=== PATIENT | male | born 1955 | race Caucasian/White ===

== ENCOUNTER 2016-10-16 10:20 | Inpatient (IN) | payer OTHER, MEDICARE ==
[~2016-10-16] VITALS: Ht 182.9 cm; Wt 130.2 kg
[~2016-10-16 10:20] MED LIST: ALBUTEROL0.09 MG/A1 INH; COUMADIN5 M2 PO; CYMBALTA60 M1 PO; DOCUSATE SODIU100 MG PO; FENOFIBRATE48 MG PO; FOSINOPRIL SODI20 M1 PO; FUROSEMIDE40 M1 PO; GABAPENTIN400 M2 PO; LOVASTATIN20 M1 PO; LOVENOX 4040 MG/0.4 SC; MIRALAX17 GM PO; OMEGA-3 300 MG-1 SGL PO; OXACILLIN IV; OXYCODONE HYDRO30 MG PO; SENOKOT8.6 MG PO; SPIRIVA18 MCG INH; TRICOR 48MG48 MG PO
--- NOTE | 2016-10-16 10:23 | ED DYSPNEA/ASTHMA COMPLAINT ---
History of Present Illness General Chief Complaint: Dyspnea (COPD, CHF, Other) Stated Complaint: BIBA SOB Source: patient, family, EMS Exam Limitations: no limitations Vital Signs & Intake/Output Vital Signs & Intake/Output Vital Signs Date Time Temp Pulse Resp B/P B/P Pulse O2 O2 Flow FiO2 Mean Ox Delivery Rate 10/17 1935 93 Nasal 4.5L Cannula 10/17 1415 97.4 80 22 126/86 95 Nasal 5.0L Cannula 10/17 0803 92 Nasal 5.0L Cannula 10/17 0800 Nasal 4.5L Cannula 10/17 0657 97.9 82 22 132/90 92 Nasal 5.0L Cannula 10/17 0000 92 Nasal 4.5L Cannula ED Intake and Output 10/17 0000 10/16 1200 Intake Total 750 Output Total 300 Balance 450 Intake, IV 350 Intake, Oral 400 Output, Urine 300 Patient 287 lb 287 lb Weight Weight Reported by Patient Measurement Method SEE TRIAGE (CHEY ALBARRAN,JADEN) Allergies Coded Allergies: NO KNOWN ALLERGIES (03/12/13) Reconcile Medications Albuterol Sulfate (Proair Hfa) 90 MCG HFA.AER.AD 2 PUF INH Q4-6 PRN PRN SHORTNESS OF BREATH (Reported) Aspirin (Aspirin*) 81 MG TAB.CHEW 1 TAB PO DAILY HEART HEALTH (Reported) Atorvastatin Calcium 80 MG TABLET 1 TAB PO DAILY CHOLESTEROL (Reported) Cholecalciferol (Vitamin D3) (Vitamin D) 1,000 UNIT TABLET 1 TAB PO DAILY VITAMIN SUPPORT (Reported) Duloxetine HCl (Cymbalta) 60 MG CAPSULE.DR 1 CAP PO QPM DEPRESSION (Reported) Fenofibrate Nanocrystallized (Fenofibrate) 48 MG TABLET 1 TAB PO DAILY CHOLESTEROL (Reported) Ferrous Sulfate 325 MG (65 MG IRON) TABLET 1 TAB PO DAILY SUPPLEMENT ( Reported) Fosinopril Sodium 20 MG TABLET 1 TAB PO DAILY HTN (Reported) Furosemide 40 MG TABLET 1 TAB PO DAILY WATER RETENTION (Reported) Gabapentin 400 MG CAPSULE 1 CAP PO BID PAIN (Reported) Lovastatin 20 MG TABLET 3 TAB PO DAILY CHOLESTEROL (Reported) Mupirocin Calcium (Mupirocin) 2 % CREAM..G. 1 SHANIA TOP DAILY PRN UNKNOWN ( Reported) [place]-3 Fatty Acids/Fish Oil (Fish Oil 1,000 MG Capsule) 340 MG-1,000 MG CAPSULE 1 CAP PO BID SUPPLEMENT (Reported) Oxycodone HCl 30 MG TABLET 1 TAB PO Q4-6 PRN PRN PAIN (Reported) Tiotropium [place] (Spiriva) 18 MCG CAP.W.DEV 1 CAP INH DAILY BREATHING PROBLEMS (Reported) Warfarin Sodium (Coumadin) 5 MG TABLET 1 TAB PO 1700 BLOOD THINNER (Reported) Triage Nurses Notes Reviewed? yes Onset: Gradual Duration: day(s): (5) Timing: recent history Severity: moderate, severe Activities at Onset: rest Associated Symptoms: SLEEPINESS, CYANOSIS, COUGH HPI: 61 year old male with history of COPD on home o2 5L, non compliant with CPAP for over one year who presents with 5 day history of cough, sob, increased sleepiness. The patient he has been symptomatic for a few days but didn't want come to the hospital. Today his mother finally told him to call the ambulance. He arrives here with his fiance. He is awake and alert and oriented 3. Patient is sleepy and slow to respond. He states he's been having episodes of chest pain was central and left-sided over the past few days but no chest pain at this time. Denies any fever or chills. He states he's been using his inhaler at home without relief. Patient also has a chronic lower extremity wounds and has his legs. Last time the visiting nurse came was on Friday. He follows up at the wound care center here with Dr. French. 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 History of PE on Coumadin. Last INR was just over 2. Denies any episodes of bleeding. History of previous transfusion 2 years ago secondary to bleeding from lower extremity ulceration. Since ruben states that over the past 5 days he has looked very purple at home. She received a DuoNeb on route. He was found to be satting in the 80s at home with 5 L. On route his saturation improved. Currently he is saturating 80% on 5 L. Past History Travel History Traveled to [place] past 21 day No Medical History Any Pertinent Medical History? see below for history Cardiovascular: CAD Respiratory: COPD, pulmonary embolism, pneumonia Psychiatric: depression Blood Disorders: coagulopathy History of MRSA: No History of VRE: No History of CDIFF: No Pneumonia Vaccine: 03/08/10 Influenza Vaccine: 01/26/14 Surgical History Surgical History: non-contributory Psychosocial History Who do you live with Mother Services at Home Nursing What is your primary language Palestinian Tobacco Use: Quit >30 days ago ETOH Use: PREVIOUS ALCOHOLIC Family History Family History, If Any: MOTHER (HTN, DM, COPD). FATHER (Cancer). Relation not specified for: FH: COPD (chronic obstructive pulmonary disease) Hx Contributory? No Review of Systems Review of Systems Constitutional: Denies: chills, fever. EENTM: Denies: blurred vision. Respiratory: Reports: cough, short of breath. Denies: sputum production. Cardiovascular: Reports: chest pain. GI: Denies: abdominal pain, nausea, vomiting. Genitourinary: Denies: discharge, dysuria. Musculoskeletal: Denies: back pain. Neurological/Psychological: Reports: see HPI (LETHARGY, SLEEPINESS). Hematologic/Endocrine: Denies: bruising, bleeding. Immunologic/Allergic: Denies: splenectomy. Physical Exam Physical Exam General Appearance: well developed/nourished, alert, awake, lethargic, mild distress, moderate distress, obese Head: atraumatic, normal appearance Eyes: Bilateral: PERRL, other (PUPILS 4 MM). Ears, Nose, Throat: normal pharynx, normal ENT inspection, hearing grossly normal Neck: normal inspection, supple, full range of motion Respiratory: accessory muscle use, wheezing Cardiovascular: regular rate/rhythm Peripheral Pulses: 2+ radial (R), 2+ radial (L) Gastrointestinal: soft, non-tender, OBESE Extremities: swelling (3+ BILATERAL), LEGS WRAPPED Neurologic/Psych: no motor/sensory deficits, awake, oriented x 3, LETHARGIC Skin: cyanosis Core Measures ACS in differential dx? Yes ASA ordered for poss ACS? No-ACS ruled out Severe Sepsis Present: No Septic Shock Present: No Progress Differential Diagnosis: CHF, COPD, pulmonary embolism, pneumonia, HYPERCARBIA Plan of Care: Orders Procedure Date/time Status PROTHROMBIN TIME 10/18 599 Active CBC WITHOUT DIFFERENTIAL 10/18 599 Active BASIC ELECTROLYTES PLUS BUN&CR 10/18 599 Active Change service to 10/17 0925 Active OXYGEN SETUP [facility] 10/16 UNK Complete INCENTIVE SPIROMETRY TRX [facility] 10/16 UNK Complete AEROSOL [facility] 10/16 UNK Complete OXYGEN 10/16 UNK Complete OXYGEN TRANSPORT 10/16 UNK Complete CONTIN. POS. AIRWAY PRESS. [facility] 10/16 UNK Complete FingerStick- Glucose 10/16 UNK Active Current Medications Sig/Bernice Start time Last Medication Dose Stop Time Status Admin Prednisone 10 MG 10/23 AC 10/24 2000 Prednisone 20 MG 10/21 AC 10/22 2000 Prednisone 30 MG 10/19 AC 10/20 2000 Moxifloxacin HCl 400 MG DAILY 10/18 1000 AC (Avelox) Prednisone 40 MG TAPER 10/18 1999 CAN 10/25 1959 Prednisone 40 MG 10/17 AC 10/17 211 Oxycodone HCl 5 MG Q6 PRN 10/17 1500 AC (Roxicodone) Potassium Chloride 40 MEQ DAILY 10/17 1453 AC 10/17 (Klor) 1552 Aspirin 81 MG DAILY 10/17 1000 AC 10/17 (Aspirin) 1102 Fenofibrate 48 MG DAILY 10/17 1000 AC 10/17 (Tricor) 1102 Ferrous Sulfate 325 MG DAILY 10/17 1000 AC 10/17 (Feosol) 1102 Furosemide 40 MG DAILY 10/17 1000 AC 10/17 (Lasix) 1102 Lisinopril 20 MG DAILY 10/17 1000 AC 10/17 (Prinivil) 1102 Vancomycin HCl 1,000 MG ONCE ONE 10/16 2245 CAN Sodium Chloride 250 ML 10/16 2344 (Normal Saline 0.9%) Albuterol Sulfate 3 ML TID 10/16 2200 AC 10/17 (Proventil) 193 Duloxetine HCl 60 MG QPM 10/16 2200 AC 10/17 (Cymbalta) 211 Atorvastatin Calcium 80 MG 1700 10/16 1700 AC 10/17 (Lipitor) 1551 Acetaminophen 650 MG Q6P PRN 10/16 1300 AC (Tylenol) Tiotropium [place] 1 PUF DAILY 10/16 1258 AC 10/17 (Spiriva) 1103 Laboratory Tests 10/17/16 0630: Anion Gap 10, Estimated GFR > 60, BUN/Creatinine Ratio 23.8, PT 37.4 H, INR 3.61 H, CBC w Diff MAN DIFF ORDERED, RBC 3.77 L, MCV 92.2, MCH 30.0, RDW 14.1, MPV 7.1 L, Gran % 92.7 H, Lymphocytes % 3.4 L, Monocytes % 3.9, Eosinophils % 0, Basophils % 0 L, Absolute Granulocytes 13.6 H, Absolute Lymphocytes 0.5 L, Absolute Monocytes 0.6, Absolute Eosinophils 0, Absolute Basophils 0, Platelet Estimate VERIFIED BY SMEAR, Polychromasia 1+, Basophilic Stippling 1+, PUBS MCHC 32.5 L [facility] PCP = EMELIA [facility] 11:34 AM PATIENT REFUSING BIPAP AFTER BEING ON FOR A FEW MINUTES. ABX, STEROIDS GIVEN. (CHEY ALBARRAN,JADEN) Diagnostic Imaging: Viewed by Me: Radiology Read. Discussed w/RAD: Radiology Read. Initial ED EKG: SINUS TACHYCARDIA AT 107 BPM Rhythm Strip: sinus tachycardia Comments: PATIENT: STEVE DENNIS PRESENT AGE: 61 PATIENT ACCOUNT NO: [id number] : 59 LOCATION: [facility] ORDERING PHYSICIAN: JADEN GUERRIER MD SERVICE DATE: 10/16/16 EXAM TYPE: RAD - XRY-PORTABLE CHEST XRAY EXAMINATION: XR PORTABLE CHEST CLINICAL INFORMATION: Hypoxia. Shortness of breath. History of chronic obstructive pulmonary disease. COMPARISON: CXR from 02/21/2014 and 02/25/2014 TECHNIQUE: Portable frontal view of the chest was obtained. FINDINGS: The upper lobes are hyperlucent from chronic emphysematous disease. The left hilum is chronically elevated and linear opacities of scarring extent from the hilum to the chronically thickened apical pleura, there is likely traction bronchiectasis in the left upper lobe. The lobulated configuration of the left hilum is similar in appearance compared to 02/21/2014. The evaluation of the lungs is suboptimal due to prominent soft tissues of the chest wall. There may be some new, hazy and interstitial opacity in the right mid and lower lung zones. There is new consolidation and/or patchy nodular opacity in the left lower lung. No pleural effusion or pneumothorax. Cardiac silhouette is at the upper range of normal size. IMPRESSION: 1. Pulmonary emphysema. 2. Chronic scarring and traction bronchiectasis of the left upper lobe. The left hilum is elevated and has lobulated contour, but this is not appreciably changed compared to 02/21/2014. 3. New patchy consolidation and/or nodular opacity in the left lower lung is nonspecific and could be caused by pneumonia and/or neoplastic disease. Radiographic follow-up is required (and chest CT follow-up may ultimately be needed). There are likely new interstitial, hazy opacities in the right mid and lower lung, suspicious for pneumonia. DICTATED BY: SHIRA HURST MD DATE/TIME DICTATED:10/16/161138 IMPROVEMENT NURSE:CHANDA DATE/TIME TRANSCRIBED:10/16/161138 CONFIDENTIAL, DO NOT COPY WITHOUT APPROPRIATE AUTHORIZATION. <Electronically signed in Other Vendor System> SIGNED BY: SHIRA HURST MD 10/16/16 1154 Departure Departure Time of Disposition: 1135 Disposition: STILL A PATIENT Condition: Stable Clinical Impression Primary Impression: COPD exacerbation Secondary Impressions: Hypercarbia Referrals: JENNY VALENZUELA MD Departure Forms: Customer Survey General Discharge Information Admission Note Spoke With: DANIELLE ALBARRAN,KATHY Documentation of Exam: Documentation of any treatments & extenuating circumstances including Concerns Regarding Discharge (functional status, medication knowledge or non-compliance, living conditions, etc.) that warrant an admission rather than observation: [ BIPAP, IV ABX, TRC/NEBS, IV STEROIDS, PULMONARY CONSULTATION, PRN NARCAN, MONITOR I/O, AVOID SEDATIVES, TAPER NARCOTICS, ECHOCARDIOGRAM, CARDIOLOGY CONSULTATION] Critical Care Note Critical Care Note Critical Care Time: 30-74 min
[2016-10-16] MEDS ORDERED: ASPIRIN81 M4 PO (10:31)
[2016-10-16] MEDS ORDERED: ATORVASTATIN CA80 M1 PO (10:31)
[2016-10-16] MEDS ORDERED: FENOFIBRATE48 M1 PO (10:32)
[2016-10-16] MEDS ORDERED: FISH OIL 1,0001 EACH PO (10:33)
[2016-10-16] MEDS ORDERED: FERROUS SULFAT325 M3 PO (10:35)
[2016-10-16] MEDS ORDERED: OXYCODONE HCL30 M1 PO (10:36)
[2016-10-16] MEDS ORDERED: MUPIROCIN15 GM TOP (10:36)
[2016-10-16] MEDS ORDERED: PROAIR HFA8.5 GM INH (10:37)
--- NOTE | 2016-10-16 10:38 | NUR ---
RT AT BEDSIDE FOR NEB AND ABG.
[2016-10-16] MEDS ORDERED: VITAMIN D1000 UNIT PO (10:39)
--- NOTE | 2016-10-16 10:42 | NUR ---
61 YO MALE BIBA FROM HOME. PT STATES HE HAS BEEN FEELING SHORT OF BREATHE FOR APPROX 2-3 DAYS WITH NONPRODUCTIVE COUGH. STATES HE WEARS 5L OXYGEN VIA NC AT BASELINE. STATES HE IS SUPPOSED TO WEAR CPAP AT NIGHTTIME BUT HASNT WORN IT IN APPROX A YEAR. STATES HE HAS BEEN FEELING MORE SLEEPY LATELY AND HAS BEEN FALLING ASLEEP DURING THE DAY "ALOT" C/O PAIN IN CENTER OF CHEST AT THIS TIME. LUNGS NOTED TO BE DIMINISHED IN ALL LUNG JASSO. ARRIVES ON 5L, SATS 81-83%. OXYGEN INCREASED TO 6L, SATS LOW 90s AT THIS TIME. PT RECIEVED JACOBY RUFFIN IN ROUTE TO ER. MD TO BEDSIDE ON ARRIVAL TO ROOM, PT APPEARS DIAPHORETIC. SINUS TACH ON MONITOR. EKG COMPLETED. IV EST. RESP TO BEDSIDE FOR ABD AND TREATMENT
[2016-10-16 10:46] LABS: ABSOLUTE BASOPHIL COUNT 0 /CUMM (0.0-0.2); ABSOLUTE EOSINOPHIL COUNT 0 /CUMM (0.0-0.7); ABSOLUTE GRANULOCYTE CT 15.6 /CUMM (1.4-6.5); ABSOLUTE LYMPH COUNT 0.6 /CUMM (1.2-3.4); ABSOLUTE MONOCYTE COUNT 0.8 /CUMM (0.10-0.60); BASOPHIL % 0.1 % (0.0-2.0); EOSINOPHIL % 0 % (0-5); HEMATOCRIT 36.7 % (42-52); MEAN CORPUSCULAR HGB 29.9 PG (27.0-31.0); MEAN CORPUSCULAR HGB CONC 32.3 G/DL (33.0-37.0); MEAN CORPUSCULAR VOLUME 92.5 FL (80.0-94.0); MEAN PLATELET VOLUME 6.4 FL (7.4-10.4); PLATELET COUNT 298 /CUMM (130-400); RBC DISTRIBUTION WIDTH 14.3 % (11.5-14.5); RED BLOOD CELL CT 3.97 /CUMM (4.70-6.10)
--- NOTE | 2016-10-16 10:46 | NUR ---
PORT CXR AT BEDSIDE.
[2016-10-16 11:01] LABS: PT 39.7 SEC (9.4-12.5); PTT 44 SEC (25-37)
--- NOTE | 2016-10-16 11:24 | NUR ---
RESP AT BEDSIDE TO PLACE PT ON BIPAP AND FOR TREATMENT AT THIS TIME
--- NOTE | 2016-10-16 11:30 | NUR ---
PT REFUSING BIPAP AT THIS TIME. EDUCATED ON BENEFIT OF BIPAP. PT PLACED BACK ON 6L NC, SATS REMAIN 95%. DR GUERRIER AWARE. IV ABX INFUSING PER EMAR. PT'S DENTURES PLACED IN DENTURE CUP AND LABELED WITH PT'S NAME.
--- NOTE | 2016-10-16 11:48 | NUR ---
DR GUERRIER IN TO REVIEW POC. ORDERED PT LUNCH.
--- NOTE | 2016-10-16 11:54 | RADIOLOGY REPORT ---
EXAMINATION: XR PORTABLE CHEST CLINICAL INFORMATION: Hypoxia. Shortness of breath. History of chronic obstructive pulmonary disease. COMPARISON: CXR from 02/21/2014 and 02/25/2014 TECHNIQUE: Portable frontal view of the chest was obtained. FINDINGS: The upper lobes are hyperlucent from chronic emphysematous disease. The left hilum is chronically elevated and linear opacities of scarring extent from the hilum to the chronically thickened apical pleura, there is likely traction bronchiectasis in the left upper lobe. The lobulated configuration of the left hilum is similar in appearance compared to 02/21/2014. The evaluation of the lungs is suboptimal due to prominent soft tissues of the chest wall. There may be some new, hazy and interstitial opacity in the right mid and lower lung zones. There is new consolidation and/or patchy nodular opacity in the left lower lung. No pleural effusion or pneumothorax. Cardiac silhouette is at the upper range of normal size. IMPRESSION: 1. Pulmonary emphysema. 2. Chronic scarring and traction bronchiectasis of the left upper lobe. The left hilum is elevated and has lobulated contour, but this is not appreciably changed compared to 02/21/2014. 3. New patchy consolidation and/or nodular opacity in the left lower lung is nonspecific and could be caused by pneumonia and/or neoplastic disease. Radiographic follow-up is required (and chest CT follow-up may ultimately be needed). There are likely new interstitial, hazy opacities in the right mid and lower lung, suspicious for pneumonia.
--- NOTE | 2016-10-16 12:24 | History & Physical ---
UL KATHY ALBARRAN,[facility] 10/16/16 1224: General Information and HPI MD Statement: I have seen and personally examined STEVE DENNIS and documented this H&P. The patient is a 61 year old M who presented with a patient stated chief complaint of [shortness of breath]. Source of Information: patient Exam Limitations: no limitations History of Present Illness: 61-year-old morbidly obese male with past medical history significant for peripheral vascular disease, pulmonary embolism on Coumadin, peripheral neuropathy,chronic venous stasis, hypertension, hyperlipidemia, prediabetes, chronic obstructive pulmonary disease on 5 L at home, obstructive sleep apnea on CPAP at night, came to emergency department with chief complaint of 5 day history of cough, increased shortness of breath and somnolence. According to the patient he has been experiencing these symptoms for the last 5 days but did not want to come to the hospital. Her mother convinced her to call the ambulance and go to the hospital. He also has been having occasional episodes of chest pain over the past few days but currently did not have any chest pain. He has been using his inhaler without any relief during the last 2 days. According to the patient's fianc he had discoloration of skin(Purple) for the last few days. He was saturating in the 80s with 5 L at home. He received DuoNeb en route. In emergency department his oxygen saturation was 81- 83% on 5 L oxygen was increased to 6 L and saturation improved to low 90s. Patient appeared to be diaphoretic as per emergency room notes. Patient also has chronic lower extremity wounds. Patient follows up with Dr. Vera and comes to [facility]. Review of system was negative for any headaches, acute severe changes, nausea, vomiting, abdominal pain, diarrhea, constipation, fever, cough, sick contacts, recent travel and lower extremity edema. Allergies/Medications Allergies: Coded Allergies: NO KNOWN ALLERGIES (03/12/13) Home Med list Albuterol Sulfate (Proair Hfa) 90 MCG HFA.AER.AD 2 PUF INH Q4-6 PRN PRN SHORTNESS OF BREATH (Reported) Aspirin (Aspirin*) 81 MG TAB.CHEW 1 TAB PO DAILY HEART HEALTH (Reported) Atorvastatin Calcium 80 MG TABLET 1 TAB PO DAILY CHOLESTEROL (Reported) Cholecalciferol (Vitamin D3) (Vitamin D) 1,000 UNIT TABLET 1 TAB PO DAILY VITAMIN SUPPORT (Reported) Duloxetine HCl (Cymbalta) 60 MG CAPSULE.DR 1 CAP PO QPM DEPRESSION (Reported) Fenofibrate Nanocrystallized (Fenofibrate) 48 MG TABLET 1 TAB PO DAILY CHOLESTEROL (Reported) Ferrous Sulfate 325 MG (65 MG IRON) TABLET 1 TAB PO DAILY SUPPLEMENT ( Reported) Fosinopril Sodium 20 MG TABLET 1 TAB PO DAILY HTN (Reported) Furosemide 40 MG TABLET 1 TAB PO DAILY WATER RETENTION (Reported) Gabapentin 400 MG CAPSULE 1 CAP PO BID PAIN (Reported) Lovastatin 20 MG TABLET 3 TAB PO DAILY CHOLESTEROL (Reported) Mupirocin Calcium (Mupirocin) 2 % CREAM..G. 1 SHANIA TOP DAILY PRN UNKNOWN ( Reported) [place]-3 Fatty Acids/Fish Oil (Fish Oil 1,000 MG Capsule) 340 MG-1,000 MG CAPSULE 1 CAP PO BID SUPPLEMENT (Reported) Oxycodone HCl 30 MG TABLET 1 TAB PO Q4-6 PRN PRN PAIN (Reported) Tiotropium [place] (Spiriva) 18 MCG CAP.W.DEV 1 CAP INH DAILY BREATHING PROBLEMS (Reported) Warfarin Sodium (Coumadin) 5 MG TABLET 1 TAB PO 1700 BLOOD THINNER (Reported) Compliance With Home Meds: FAIR Past History Travel History Traveled to [place] past 21 day No Medical History Neurological: peripheral neuropathy EENT: NONE Cardiovascular: CAD Respiratory: COPD, pulmonary embolism, pneumonia Gastrointestinal: NONE Hepatic: NONE Renal: NONE Musculoskeletal: NONE Psychiatric: depression Endocrine: BOARDERLINE DIABETIC Blood Disorders: coagulopathy Cancer(s): 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 FATHER (Cancer). Relation not specified for: FH: COPD (chronic obstructive pulmonary disease) Psychosocial History Where do you live? Home Who Do You Live With? parent Services at Home: Nursing ETOH Use: PREVIOUS ALCOHOLIC Functional Ability ADLs Independent: dressing, eating, toileting, bathing. Ambulation: independent IADLs Independent: shopping, housework, transportation, medication admin. Review of Systems Review of Systems Constitutional: Denies: chills, fever. Cardiovascular: Denies: chest pain, palpitations. Respiratory: Reports: short of breath. Denies: cough. GI: Denies: abdominal pain, nausea, vomiting. Genitourinary: Denies: dysuria. Musculoskeletal: Denies: back pain. All Other Systems: Reviewed and Negative Exam & Diagnostic Data Last 24 Hrs of Vital Signs/I&O Vital Signs Date Time Temp Pulse Resp B/P B/P Pulse O2 O2 Flow FiO2 Mean Ox Delivery Rate 10/16 1238 97.0 62 20 118/62 94 Nasal 6.0L Cannula 10/16 1111 95 Nasal 6.0L Cannula 10/16 1100 96 Nasal 6.0L Cannula 10/16 1050 93 Nasal 6.0L Cannula 10/16 1035 98.9 108 20 131/74 92 Nasal 6.0L Cannula Intake & Output 10/16 1600 10/16 0800 10/16 0000 Intake Total Output Total Balance Patient 287 lb Weight Weight Reported by Patient Measurement Method Physical Exam General Appearance Alert, Oriented X3, Cooperative, Mild Distress HEENT Atraumatic Neck Supple Cardiovascular Regular Rate, Normal S1, Normal S2, No Murmurs Lungs bilateral wheezing on lung examination Abdomen Normal Bowel Sounds, Soft, No Tenderness Neurological Normal Speech, Normal Tone, Sensation Intact Extremities BILATERAL LOWER EXTREMITIES COVERED WITH DRESSING FOR CHRONIC WOUNDS Last 24 Hrs of Labs/[place]: Laboratory Tests 10/16/16 1040: pH 7.32 L, pCO2 55 H, pO2 75 L, HCO3 28, ABG O2 Sat (Measured) 93.0 L, Carboxyhemoglobin 0.9 L, O2 Concentration % 6L, O2 Delivery Method NC, Phlebotomy Draw Site LEFT RADIAL 10/16/16 1028: Anion Gap 12, Estimated GFR > 60, BUN/Creatinine Ratio 15.6, Glucose 188 H, Lactic Acid 1.8, Calcium 8.6, Total Bilirubin 0.9, AST 30, ALT 36, Alkaline Phosphatase 89, Troponin I < 0.01, Epo-Y-Hiuecjiuwze Pept 665 H, Total Protein 7.2, Albumin 3.7, Globulin 3.5, Albumin/Globulin Ratio 1.1, PT 39.7 H, INR 3.83 H, APTT 44 H, CBC w Diff MAN DIFF ORDERED, RBC 3.97 L, MCV 92.5, MCH 29.9, RDW 14.3, MPV 6.4 L, Gran % 92.0 H, Lymphocytes % 3.3 L, Monocytes % 4.6, Eosinophils % 0, Basophils % 0.1, Absolute Granulocytes 15.6 H, Segmented Neutrophils 88 H, Band Neutrophils 6 H, Absolute Lymphocytes 0.6 L, Lymphocytes 4 L, Monocytes 2, Absolute Monocytes 0.8 H, Absolute Eosinophils 0 , Absolute Basophils 0, Platelet Estimate ADEQUATE, Normocytic RBCs VERIFIED, Normochromic RBCs VERIFIED, PUBS MCHC 32.3 L Microbiology 10/16 1035 BLOOD: Blood Culture - RECD 10/16 1029 LOWER RESP: Respiratory Culture - ORD 10/16 1029 LOWER RESP: Gram Stain - ORD 10/16 1028 BLOOD: Blood Culture - RECD Diagnostic Data EKG Results Sinus tachycardia CXR Results Pulmonary emphysema.Chronic scarring and traction bronchiectasis of the left upper lobe. The left hilum is elevated and has lobulated contour, but this is not appreciably changed compared to 02/21/2014. New patchy consolidation and/or nodular opacity in the left lower lung is nonspecific and could be caused by pneumonia and/or neoplastic disease. Radiographic follow-up is required (and chest CT follow-up may ultimately be needed). There are likely new interstitial, hazy opacities in the right mid and lower lung, suspicious for pneumonia. Assessment/Plan Assessment: 61-year-old morbidly obese male with past medical history significant for peripheral vascular disease, pulmonary embolism on Coumadin, peripheral neuropathy,chronic venous stasis, hypertension, hyperlipidemia, prediabetes, chronic obstructive pulmonary disease on 5 L at home, obstructive sleep apnea on BiPAP at night, came to emergency department with chief complaint of 5 day history of cough, increased shortness of breath and somnolence. - Inciting event unknown. No History of URTI or ill contacts ? Compliance vs Worseneing of disease. Hpercarbic hypoxemic Respiratory failure/ COPD exacerbation Most likely cause of hypercarbic and hypoxemic respiratory failure secondary to noncompliance with CPAP as patient has significant obstructive sleep apnea and does not wear CPAP machine at all. - Currently Afebrile - Hemodynamically stable - No chest Pain but does c/o chest pressure - WBC count - 17 Patient received ceftriaxone and azithromycin along with ipratropium and albuterol inhaler in emergency department. - Admit to General Medicine Floor - Vitals Q shift - Oxygen by nasal canula as required, taper as tolerated - Start Tiotropium Inhaler 1 puff daily - Start Symicort Inhaler 2 puffs inhaler BID - Strat IV Steroids Methylprednisone 40mg Q8 IV - Taper Steroids with clinical improvement - Patient received IV ceftriaxone - Start 500mg IV Zithromax for COPD exacerbation - TRC Nebs as needed - Repeat ABG - Pulmo Consult Sepsis secondary to pneumonia Patient meets the criteria for sepsis with a white count of 19, tachypnea, tachycardia and source of infection in the lungs. As per pulmonary recommendations patient has bronchiectasis and staph aureus in the past and therefore will give her ceftazidime and vancomycin. Patient already received IV Septra exhorted azithromycin in emergency department. Will follow-up with imaging. History of pulmonary embolism Continue Coumadin Hold Coumadin dose today Adjust Coumadin dose as per INR Acute metabolic encephalopathy/Chronic pain management Patient follows up with a specialist for pain management. He was on narcotics Oxycodone HCl 30 MG TABLET 1 TAB PO Q4-6 PRN PRN PAIN. We will hold off on narcotics as patient was very somnolent in emergency department and received Narcan 0.2 mg in emergency department and was more active and alert after that. Patient is full code Patient is on Coumadin for DVT prophylaxis Patient is on heart healthy diet Patient is on pain management As Ranked By This Provider Problem List: 1. Shortness of breath 2. COPD (chronic obstructive pulmonary disease) Core Measures/Miscellaneous Acute Coronary Syndrome ACS Diagnosis: No Cerebrovascular Accident CVA/TIA Diagnosis: No Congestive Heart Failure CHF Diagnosis: No VTE (View Protocol) VTE Risk Factors: Acute medical illness, Age > 40 [facility] prophylaxis d/t: VTE low risk, No contraindications No VTE Pharm Prophylaxis d/t: VTE low risk, No contraindications VTE Diagnosis: No VTE Type: NONE VTE Confirmed by (Test): NONE Sepsis (View Protocol) Severe Sepsis Present: No Septic Shock Septic Shock Present: No Miscellaneous Documentation Attending Case Discussed With: KATHY SANTOS MD Primary Care Physician: KATHY SANTOS MD Patient sees these Specialists Piercer Level of Patient Care: General Medicine ISABELL GIBBONS 10/16/16 1438: Attending Review Statement Attending Statement Attending MD Statement: examined this patient, discuss w/resident/PA/AUDIT CLERK, agreed w/resident/PA/AUDIT CLERK, discussed with family, reviewed EMR data (avail), discussed with nursing, discussed with case mgmt, reviewed images, amended to note Attending Assessment/Plan: ASSESSMENT 1. Acute on chronic respiratory failure 2. COPD exacerbation with bronchiectasis 3. Pneumonia 4. Sepsis 2/2 above. 5. Severe COPD disease on home oxygen 5l 6. [place] non complaint with CPAP 7. Pulmonary hypertension 8. H/o PE on warfarin 9. Chronic venous stasis and wound 10. Chronic pain on narcotics 11. Supratherapeutic INR PLAN admit to inpatient medical services BIPAP, repeat ABG, i/v steroids, i/v abx, blood culture, sputum analysis, LA wnl , Pulm consulted trial of narcan improving mental status, CT chest with contrast, ECHO warfarin hold for today, c/w a/c as home meds avoid narcotics, f/u o/p pain management, wound consult. resume home meds gi/dvt prophyalxis full code tts>37 min plan of care d/wed patient and family bedside in ER.
--- NOTE | 2016-10-16 12:46 | NUR ---
pt has bed assignment 215-2 .rn notified
--- NOTE | 2016-10-16 13:32 | NUR ---
RESP CALLED FOR REPEAT EKG AT THIS TIME
--- NOTE | 2016-10-16 13:41 | NUR ---
HOUSESTAFF IN FOR EVAL
--- NOTE | 2016-10-16 13:46 | NUR ---
REPORT TO JACQUELINE BACK ON 2NB.
--- NOTE | 2016-10-16 13:50 | NUR ---
PT PLACED BACK ON BIPAP BY RT.
--- NOTE | 2016-10-16 14:21 | NUR ---
PT MEDICATED WITH 0.2MG IV NARCAN PER ORDER AT THIS TIME
--- NOTE | 2016-10-16 14:23 | NUR ---
PT SITITNG UP PLAYING WITH PHONE AT THIS TIME, AWAKE AND ALERT.
--- NOTE | 2016-10-16 14:25 | NUR ---
DR GIBBONS AT BEDSIDE.
--- NOTE | 2016-10-16 14:26 | NUR ---
JACQUELINE BACK ON 2NB UPDATED. PT CONTINUES TO AWAIT TRANSPORTATION. Informed waiting has been performed.
--- NOTE | 2016-10-16 14:36 | NUR ---
PER DR GIBBONS, PT OK FOR GEN MED AT THIS TIME. CONTINUES TO AWAIT TRANSPORT. Informed waiting has been performed.
--- NOTE | 2016-10-16 14:40 | NUR ---
PT UNABLE TO GO TO FLOOR AT THIS TIME DUE TO "BLACK OUT PERIOD". PT REMAINS AWAKE, ALERT, CONVERSIVE WITH FIANCE. TOLERATING BIPAP, SATS 97%. Informed waiting has been performed.
--- NOTE | 2016-10-16 15:00 | NUR ---
REPORT HANDED OFF TO ABHAY CAMARENA RN. TAX COLLECTION COORDINATORWONG CAMARENA AWARE REPORT IS GIVEN TO 2NB AND TRANSPORT IS BOOKED.
[2016-10-16 16:00] VITALS: BP 135/70
--- NOTE | 2016-10-16 18:41 | NUR ---
1530 PATIENT ARRIVED TO FLOOR. BED LOW AND LOCKED. CALL LIGHT WITHIN REACH ALERT AND ORIENTED X 3. ON 4L O2 NC. DIMINISHED LUNGS. SHORT OF BREATH VITAL SIGNS STABLE. DENIES CHEST PAIN. + PULSES. HX PERIPHERAL NEUOPATHY TO BLE. DARK DISCOLORATION TO BLE. DSG TO LLE IS C/D/I. NO DISTRESS OR DISCOMFORT NOTED. 1800 ON 4.5L O2 VIA NC. O2SAT 92%
--- NOTE | 2016-10-16 18:46 | Cons- Pulmonary ---
General Information and HPI Consulting Request Date of Consult: 10/16/16 Requested By: MED TEAM History of Present Illness: 61-year-old morbidly obese male with past medical history significant for peripheral vascular disease, pulmonary embolism on Coumadin, peripheral neuropathy,chronic venous stasis, hypertension, hyperlipidemia, prediabetes, chronic obstructive pulmonary disease on 5 L at home, obstructive sleep apnea on CPAP at night, came to emergency department with chief complaint of 5 day history of cough, increased shortness of breath and somnolence. According to the patient he has been experiencing these symptoms for the last 5 days but did not want to come to the hospital. Her mother convinced her to call the ambulance and go to the hospital. He also has been having occasional episodes of chest pain over the past few days but currently did not have any chest pain. He has been using his inhaler without any relief during the last 2 days. According to the patient's fianc he had discoloration of skin(Purple) for the last few days. He was saturating in the 80s with 5 L at home. He received DuoNeb en route. In emergency department his oxygen saturation was 81- 83% on 5 L oxygen was increased to 6 L and saturation improved to low 90s. Patient appeared to be diaphoretic as per emergency room notes. Patient also has chronic lower extremity wounds. Patient follows up with Dr. Vera and comes to [facility]. Review of system was negative for any headaches, acute severe changes, nausea, vomiting, abdominal pain, diarrhea, constipation, fever, cough, sick contacts, recent travel and lower extremity edema. Allergies/Medications Allergies: Coded Allergies: NO KNOWN ALLERGIES (03/12/13) Home Med List: Albuterol Sulfate (Proair Hfa) 90 MCG HFA.AER.AD 2 PUF INH Q4-6 PRN PRN SHORTNESS OF BREATH (Reported) Aspirin (Aspirin*) 81 MG TAB.CHEW 1 TAB PO DAILY HEART HEALTH (Reported) Atorvastatin Calcium 80 MG TABLET 1 TAB PO DAILY CHOLESTEROL (Reported) Cholecalciferol (Vitamin D3) (Vitamin D) 1,000 UNIT TABLET 1 TAB PO DAILY VITAMIN SUPPORT (Reported) Duloxetine HCl (Cymbalta) 60 MG CAPSULE.DR 1 CAP PO QPM DEPRESSION (Reported) Fenofibrate Nanocrystallized (Fenofibrate) 48 MG TABLET 1 TAB PO DAILY CHOLESTEROL (Reported) Ferrous Sulfate 325 MG (65 MG IRON) TABLET 1 TAB PO DAILY SUPPLEMENT ( Reported) Fosinopril Sodium 20 MG TABLET 1 TAB PO DAILY HTN (Reported) Furosemide 40 MG TABLET 1 TAB PO DAILY WATER RETENTION (Reported) Gabapentin 400 MG CAPSULE 1 CAP PO BID PAIN (Reported) Lovastatin 20 MG TABLET 3 TAB PO DAILY CHOLESTEROL (Reported) Mupirocin Calcium (Mupirocin) 2 % CREAM..G. 1 SHANIA TOP DAILY PRN UNKNOWN ( Reported) [place]-3 Fatty Acids/Fish Oil (Fish Oil 1,000 MG Capsule) 340 MG-1,000 MG CAPSULE 1 CAP PO BID SUPPLEMENT (Reported) Oxycodone HCl 30 MG TABLET 1 TAB PO Q4-6 PRN PRN PAIN (Reported) Tiotropium [place] (Spiriva) 18 MCG CAP.W.DEV 1 CAP INH DAILY BREATHING PROBLEMS (Reported) Warfarin Sodium (Coumadin) 5 MG TABLET 1 TAB PO 1700 BLOOD THINNER (Reported) Review of Systems Comments Review of Systems Review of Systems Constitutional: Denies: chills, fever. Cardiovascular: Denies: chest pain, palpitations. Respiratory: Reports: short of breath. Denies: cough. GI: Denies: abdominal pain, nausea, vomiting. Genitourinary: Denies: dysuria. Musculoskeletal: Denies: back pain. 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 FATHER (Cancer). Relation not specified for: FH: COPD (chronic obstructive pulmonary disease) Psychosocial History Where Do You Live? Home Who Do You Live With? parent Services at Home: Nursing Smoking Status: Former Smoker ETOH Use: PREVIOUS ALCOHOLIC Functional Ability ADLs Independent: dressing, eating, toileting, bathing. Ambulation: independent IADLs Independent: shopping, housework, transportation, medication admin. ECHO Results (as available) Date of last Echo 02/23/14 EF% 60 Exam & Diagnostic Data Last 24 Hrs of Vital Signs/I&O Vital Signs Date Time Temp Pulse Resp B/P B/P Pulse O2 O2 Flow FiO2 Mean Ox Delivery Rate 10/16 1600 97.9 89 22 135/70 90 Nasal 4.0L Cannula 10/16 1530 90 Nasal 4.0L Cannula 10/16 1350 96.0 102 20 114/70 93 BIPAP 10/16 1348 83 95 10/16 1238 97.0 62 20 118/62 94 Nasal 6.0L Cannula 10/16 1111 95 Nasal 6.0L Cannula 10/16 1100 96 Nasal 6.0L Cannula 10/16 1050 93 Nasal 6.0L Cannula 10/16 1035 98.9 108 20 131/74 92 Nasal 6.0L Cannula Intake & Output 10/16 1600 10/16 0800 10/16 0000 Intake Total 350 Output Total Balance 350 Intake, IV 350 Patient 287 lb Weight Weight Reported by Patient Measurement Method Last 48 Hrs of Labs/[place]: Laboratory Tests 10/16/16 1345: pH 7.28 *L, pCO2 61 *H, pO2 106 H, HCO3 28, ABG O2 Sat (Measured) 97.0, P-50 ( Temp Corrected) N, Carboxyhemoglobin 0.6 L, O2 Concentration % 6L, Temperature 97.0, O2 Delivery Method NC, Phlebotomy Draw Site RIGHT RADIAL 10/16/16 1329: Lactic Acid Cancelled 10/16/16 1040: pH 7.32 L, pCO2 55 H, pO2 75 L, HCO3 28, ABG O2 Sat (Measured) 93.0 L, Carboxyhemoglobin 0.9 L, O2 Concentration % 6L, O2 Delivery Method NC, Phlebotomy Draw Site LEFT RADIAL 10/16/16 1028: Anion Gap 12, Estimated GFR > 60, BUN/Creatinine Ratio 15.6, Glucose 188 H, Lactic Acid 1.8, Calcium 8.6, Total Bilirubin 0.9, AST 30, ALT 36, Alkaline Phosphatase 89, Troponin I < 0.01, Gkj-S-Hiqkydjltjw Pept 665 H, Total Protein 7.2, Albumin 3.7, Globulin 3.5, Albumin/Globulin Ratio 1.1, PT 39.7 H, INR 3.83 H, APTT 44 H, CBC w Diff MAN DIFF ORDERED, RBC 3.97 L, MCV 92.5, MCH 29.9, RDW 14.3, MPV 6.4 L, Gran % 92.0 H, Lymphocytes % 3.3 L, Monocytes % 4.6, Eosinophils % 0, Basophils % 0.1, Absolute Granulocytes 15.6 H, Segmented Neutrophils 88 H, Band Neutrophils 6 H, Absolute Lymphocytes 0.6 L, Lymphocytes 4 L, Monocytes 2, Absolute Monocytes 0.8 H, Absolute Eosinophils 0 , Absolute Basophils 0, Platelet Estimate ADEQUATE, Normocytic RBCs VERIFIED, Normochromic RBCs VERIFIED, PUBS MCHC 32.3 L Assessment/Plan Impression/Plan: Physical Exam General Appearance Alert, Oriented X3, Cooperative, Mild Distress ON BIPAP IN ED HEENT Atraumatic Neck Supple Cardiovascular Regular Rate, Normal S1, Normal S2, No Murmurs Lungs bilateral wheezing on lung examination Abdomen Normal Bowel Sounds, Soft, No Tenderness Neurological Normal Speech, Normal Tone, Sensation Intact SIGNIFICANT DATA ABGs reviewed showed significant hypercarbia BUN/creatinine normal other blood work reviewed in the computer White count 17 with a significant left shift with 6% bands INR was 3.83 Chest x-ray showed significant pulmonary emphysema traction bronchiectasis left upper lobe with new consolidation in the left lower lobe nonspecific probable pneumonia Previous CT of the abdomen reviewed which was unremarkable nonobstructing renal calculi Previous chest x-ray was similar Echocardiogram done in 2014 showed normal ejection fraction. Medications reviewed IMPRESSION This is a 61-year-old gentleman with morbid obesity, significant smoking history with severe emphysema, peripheral vascular disease, remote history of pulmonary embolism on chronic anticoagulation, significant peripheral neuropathy, chronic venous stasis and lower extremity edema with recurrent cellulitis in the past, hypertension, hyperlipidemia, prediabetes, obstructive sleep apnea on CPAP noncompliant at home comes in with * Acute on chronic hypercarbic respiratory failure related to worsening COPD with COPD exacerbation and left lower lobe pneumonia. This is made worse by narcotic use with hypercarbia * Left lower lobe pneumonia in a patient with left upper lobe bronchiectasis high risk for pseudomonas * Significant sepsis with bandemia * End-stage lung disease on home oxygen therapy * Morbid obesity with obstructive sleep apnea noncompliant with CPAP * Pulmonary hypertension with hypercarbia due to sleep apnea and end-stage COPD * Chronic venostasis with chronic cor pulmonale * Chronic narcotics use for pain which is also contributing to hypercarbia * Remote history of venous thromboembolism now on anticoagulation appropriately anticoagulated * Hypertension, hyperlipidemia, depression, diabetes versus glucose intolerance relatively stable * Significant peripheral neuropathy with pain * Previous history of alcoholism now has quit drinking for patient * More than [id number] smoking history seems to have quit recently RECOMMENDATION * Continue BiPAP therapy * Lasix daily * CT scan of the chest with IV contrast to evaluate his lungs * Start him on IV azithromycin and ceftazidime for now * 1 dose of vancomycin * Sputum culture * Continue his other medications * Continue intravenous steroids and reduce it to 40 twice a day * Avoid narcotics if possible * Once he is able and slowly resume his gabapentin and low-dose narcotics which he was on to prevent withdrawal * Fingerstick glucose * [id number] nebulizer therapy * Check his INR daily * Lower extremity Dopplers Will follow closely Consult Acknowledgment - Thank you for your consult request.
--- NOTE | 2016-10-16 21:20 | ECHOCARDIOGRAM REPORT ---
STEVE DENNIS Age: 61 : 1955 Gender: M Exam Date: 10/16/2016 16:32 Exam Location: [address] [place] [address] Ht (in): 72 Wt (lb): 287 BSA: 2.62 BP: 114 / 70 Ordering Physician: HAYDEE AMAYA MD Referring Physician: HAYDEE AMAYA MD Technologist: Erendira Lewis [facility] Room Number: [id number] Indications: PULMONARY HYPERTENSION Rhythm: Sinus Technical Quality: Poor, Very technically difficult study FINDINGS Left Ventricle Left ventricle not well visualized, grossly normal. Right Ventricle Right ventricle not well visualized. Right Atrium Normal right atrial size. Left Atrium Normal left atrial size. Mitral Valve Mitral valve thickened. Aortic Valve Trileaflet aortic valve. Diffuse thickening (sclerosis) of the aortic valve cusps without reduced excursion. No aortic stenosis. No aortic regurgitation. Tricuspid Valve Tricuspid valve not well visualized. Pulmonic Valve Pulmonic valve not well visualized. Pericardium No pericardial effusion. Great Vessels Aortic root and proximal ascending aorta not well visualized, grossly normal. CONCLUSIONS 1. This was a technically very difficult and extremely limited examination. 2. Aortic sclerosis is present. 3. Mitral leaflet thickening is present. 4. There is no obvious pericardial fluid present. 5. The left ventricular chamber size and systolic function appear normal. Accurate wall motion assessment was not possible. 6. THe right heart structures were not well visualized. The RV systolic pressure could not be assessed on this examination. 7. Additional images were obtained following the administration of IV contrast. These images demonstrated normal LV systolic function and no obvious resting wall motion abnormalities. Blaise Eason M.D. (Electronically Signed) Final Date: 16 October 2016 21:19 MEASUREMENTS (Male / Female) Normal Values 2D ECHO LV Diastolic Diameter PLAX 5.6 cm 4.2 - 5.9 / 3.9 - 5.3 cm LV Systolic Diameter PLAX 3.6 cm 2.1 - 4.0 cm LV Fractional Shortening PLAX 35.7 % 25 - 46 % LV Ejection Fraction 2D Teich 64.6 % IVS Diastolic Thickness 1.0 cm LVPW Diastolic Thickness 1.2 cm LV Relative Wall Thickness 0.4 RV Internal Dim ED PLAX 3.3 cm 1.9 - 3.8 cm LVOT Diameter 2.6 cm Aortic Root Diameter 3.9 cm LA Systolic Diameter LX 4.2 cm 3.0 - 4.0 / 2.7 - 3.8 cm LA Volume 45.0 cm 18 - 58 / 22 - 52 cm DOPPLER AV Peak Velocity 116.0 cm/s AV Peak Gradient 5.4 mmHg AV Mean Velocity 84.1 cm/s AV Mean Gradient 3.0 mmHg AV Velocity Time Integral 24.2 cm LVOT Peak Velocity 110.0 cm/s LVOT Peak Gradient 4.8 mmHg LVOT Mean Velocity 75.4 cm/s LVOT Mean Gradient 3.0 mmHg LVOT Velocity Time Integral 23.5 cm LVOT Stroke Volume 124.8 cm AV Area Cont Eq vti 5.2 cm AV Area Cont Eq pk 5.0 cm MV Peak Velocity 99.9 cm/s MV Peak Gradient 4.0 mmHg MV Mean Velocity 65.7 cm/s MV Mean Gradient 2.0 mmHg Mitral E Point Velocity 86.9 cm/s Mitral A Point Velocity 87.4 cm/s Mitral E to A Ratio 1.0 MV PHT Velocity 105.0 cm/s MV Deceleration Bradley 483.0 cm/s MV Pressure Half Time 65.2 ms MV Area PHT 3.4 cm MV Deceleration Time 293.0 ms LV E' Lateral Velocity 11.7 cm/s Mitral E to LV E' Lateral Ratio 7.4 LV E' Septal Velocity 7.4 cm/s Mitral E to LV E' Septal Ratio 11.8
[2016-10-17 06:57] VITALS: BP 132/90
[2016-10-17 07:45] LABS: ABSOLUTE BASOPHIL COUNT 0 /CUMM (0.0-0.2); ABSOLUTE EOSINOPHIL COUNT 0 /CUMM (0.0-0.7); ABSOLUTE GRANULOCYTE CT 13.6 /CUMM (1.4-6.5); ABSOLUTE LYMPH COUNT 0.5 /CUMM (1.2-3.4); ABSOLUTE MONOCYTE COUNT 0.6 /CUMM (0.10-0.60); BASOPHIL % 0 % (0.0-2.0); EOSINOPHIL % 0 % (0-5); GRANULOCYTE % 92.7 % (42.2-75.2); HEMATOCRIT 34.8 % (42-52); MEAN CORPUSCULAR HGB CONC 32.5 G/DL (33.0-37.0); MEAN CORPUSCULAR VOLUME 92.2 FL (80.0-94.0); MEAN PLATELET VOLUME 7.1 FL (7.4-10.4); PLATELET COUNT 312 /CUMM (130-400); RBC DISTRIBUTION WIDTH 14.1 % (11.5-14.5); RED BLOOD CELL CT 3.77 /CUMM (4.70-6.10); WHITE BLOOD CELL COUNT 14.7 /CUMM (4.8-10.8)
[2016-10-17 08:15] LABS: PT 37.4 SEC (9.4-12.5)
--- NOTE | 2016-10-17 08:39 | PN- Housestaff ---
LITO CHAVEZ MD,HAYDEE 10/17/16 0839: Subjective Follow-up For: Acute hypoxemic hypercarbic respiratory failure COPD exacerbation Community-acquired pneumonia Obstructive Sleep apnea noncompliant with CPAP History of PE on Coumadin Chronic pain management Complaints: no complaints Subjective: Patient remained compliant with BiPAP. He was switched to nasal cannula and currently saturating 92% on 5 L which is his baseline. He remained afebrile overnight Review of Systems Constitutional: Denies: chills, fever. EENTM: Denies: visual changes. Cardiovascular: Denies: chest pain, palpitations. Respiratory: Reports: short of breath. Denies: cough. Gastrointestinal: Denies: abdominal pain, nausea, vomiting. Genitourinary: Denies: discharge. Objective Last 24 Hrs of Vital Signs/I&O Vital Signs Date Time Temp Pulse Resp B/P B/P Pulse O2 O2 Flow FiO2 Mean Ox Delivery Rate 10/17 0803 92 Nasal 5.0L Cannula 10/17 0657 97.9 82 22 132/90 92 Nasal 5.0L Cannula 10/17 0000 92 Nasal 4.5L Cannula 10/16 1838 Nasal 4.5L Cannula 10/16 1600 97.9 89 22 135/70 90 Nasal 4.0L Cannula 10/16 1530 90 Nasal 4.0L Cannula 10/16 1350 96.0 102 20 114/70 93 BIPAP 10/16 1348 83 95 10/16 1238 97.0 62 20 118/62 94 Nasal 6.0L Cannula 10/16 1111 95 Nasal 6.0L Cannula 10/16 1100 96 Nasal 6.0L Cannula 10/16 1050 93 Nasal 6.0L Cannula 10/16 1035 98.9 108 20 131/74 92 Nasal 6.0L Cannula Intake & Output 10/17 1600 10/17 0800 10/17 0000 Intake Total 730 400 Output Total 400 300 Balance 330 100 Intake, IV 250 Intake, Oral 480 400 Output, Urine 400 300 Physical Exam General Appearance: Alert, Oriented X3, Cooperative, No Acute Distress HEENT: Atraumatic Neck: Supple Cardiovascular: Regular Rate, Normal S1, Normal S2, No Murmurs Lungs: BILATERAL WHEEZING ON EXAMINATION Abdomen: Normal Bowel Sounds, Soft, No Tenderness Neurological: Normal Speech, Normal Tone, Sensation Intact Extremities: BILATERAL LOWER EXTREMITIES COVERED WITH DRESSING FOR CHRONIC WOUNDS Current Medications: Current Medications Sig/Bernice Start time Last Medication Dose Route Stop Time Status Admin Acetaminophen 650 MG Q6P PRN 10/16 1300 AC PO Albuterol Sulfate 3 ML TID 10/16 2200 AC 10/17 INH 0802 Albuterol Sulfate 3 ML ONCE ONE 10/16 1115 DC 10/16 INH 10/16 1116 1115 Albuterol Sulfate 3 ML ONCE ONE 10/16 1030 DC 10/16 INH 10/16 1031 1031 Aspirin 81 MG DAILY 10/17 1000 AC PO Atorvastatin Calcium 80 MG 1700 10/16 1700 AC 10/16 PO 1716 Azithromycin 500 MG DAILY 10/17 1000 AC Sodium Chloride 250 ML IV Azithromycin 500 MG ONCE ONE 10/16 1130 DC 10/16 Sodium Chloride 250 ML IV 10/16 1229 1130 Ceftazidime 2,000 MG IQ8 10/17 0000 AC 10/16 IV 2358 Ceftazidime 1,000 MG ONCE ONE 10/16 1500 DC 10/16 IV 10/16 1501 1915 Ceftriaxone Sodium 0 .STK-MED ONE 10/16 1133 DC .ROUTE Ceftriaxone Sodium 1,000 MG ONCE ONE 10/16 1130 DC 10/16 IV 10/16 1131 1130 Duloxetine HCl 60 MG QPM 10/16 2200 AC 10/16 PO 2119 Fenofibrate 48 MG DAILY 10/17 1000 AC PO Ferrous Sulfate 325 MG DAILY 10/17 1000 AC PO Furosemide 40 MG DAILY 10/17 1000 AC PO Ipratropium [place] 2.5 ML ONCE ONE 10/16 1115 DC 10/16 INH 10/16 1116 1115 Ipratropium [place] 2.5 ML ONCE ONE 10/16 1030 DC 10/16 INH 10/16 1031 1031 Lisinopril 20 MG DAILY 10/17 1000 AC PO Methylprednisolone 40 MG Q12 10/17 1000 AC IV Methylprednisolone 40 MG Q8 10/17 0600 DC IV Methylprednisolone 0 .STK-MED ONE 10/16 1045 DC .ROUTE Methylprednisolone 125 MG ONCE ONE 10/16 1030 DC 10/16 IV 10/16 1031 1043 Morphine Sulfate 0.5 MG Q6P PRN 10/16 1300 DC IV Naloxone HCl 0.2 MG ONCE ONE 10/16 1430 DC 10/16 IV 10/16 1431 1421 Naloxone HCl 0 .STK-MED ONE 10/16 1421 DC .ROUTE Oxycodone HCl 5 MG Q6P PRN 10/16 1300 DC PO Tiotropium [place] 1 PUF DAILY 10/16 1258 AC INH Vancomycin HCl 1,000 MG ONCE ONE 10/16 2245 CAN Sodium Chloride 250 ML IV 10/16 2344 Vancomycin HCl 1,000 MG ONCE ONE 10/16 1500 DC 10/16 Sodium Chloride 250 ML IV 10/16 1559 2027 Last 24 Hrs of Lab/[place] Results Last 24 Hrs of Labs/Mics: Laboratory Tests 10/17/16 0630: Anion Gap 10, Estimated GFR > 60, BUN/Creatinine Ratio 23.8, PT 37.4 H, INR 3.61 H, CBC w Diff Pending, WBC Pending, RBC Pending, Hgb Pending, Hct Pending, MCV Pending, MCH Pending, RDW Pending, Plt Count Pending, MPV Pending, Gran % Pending, Lymphocytes % Pending, Monocytes % Pending, Eosinophils % Pending, Basophils % Pending, Absolute Granulocytes Pending, Absolute Lymphocytes Pending , Absolute Monocytes Pending, Absolute Eosinophils Pending, Absolute Basophils Pending, PUBS MCHC Pending 10/16/162038: Urine Opiates Screen 625.00, Methadone Screen 51, Barbiturate Screen < 60, Ur Phencyclidine Scrn < 6.00, Amphetamines Screen 391, U Benzodiazepines Scrn < 85, Urine Cocaine Screen < 50, Urine Cannabis Screen < 5.00, Urinalysis LIGHT H, Urine Color YEL, Urine Clarity CLEAR, Urine pH 6.0, Ur Specific [place] >= 1.030 , Urine Protein TRACE H, Urine Ketones NEG, Urine Nitrite NEG, Urine Bilirubin NEG, Urine Urobilinogen 2.0 H, Ur Leukocyte Esterase NEG, Ur Microscopic SEDIMENT EXAMINED, Urine RBC RARE, Ur Epithelial Cells FEW, Hyaline Casts RARE H, Urine Mucus MOD H, Urine Hemoglobin NEG, Urine Glucose 250 H 10/16/16 1915: pH 7.37, pCO2 54 H, pO2 67 L, HCO3 30 H, ABG O2 Sat (Measured) 92.0 L, P-50 (Temp Corrected) N, Carboxyhemoglobin 0.2 L, O2 Concentration % 4.5L, Temperature 97.9, O2 Delivery Method NC, Phlebotomy Draw Site RIGHT RADIAL 10/16/16 1345: pH 7.28 *L, pCO2 61 *H, pO2 106 H, HCO3 28, ABG O2 Sat (Measured) 97.0, P-50 ( Temp Corrected) N, Carboxyhemoglobin 0.6 L, O2 Concentration % 6L, Temperature 97.0, O2 Delivery Method NC, Phlebotomy Draw Site RIGHT RADIAL 10/16/16 1329: Lactic Acid Cancelled 10/16/16 1040: pH 7.32 L, pCO2 55 H, pO2 75 L, HCO3 28, ABG O2 Sat (Measured) 93.0 L, Carboxyhemoglobin 0.9 L, O2 Concentration % 6L, O2 Delivery Method NC, Phlebotomy Draw Site LEFT RADIAL 10/16/16 1028: Anion Gap 12, Estimated GFR > 60, BUN/Creatinine Ratio 15.6, Glucose 188 H, Lactic Acid 1.8, Calcium 8.6, Total Bilirubin 0.9, AST 30, ALT 36, Alkaline Phosphatase 89, Troponin I < 0.01, Pwi-O-Efprwqmrnpl Pept 665 H, Total Protein 7.2, Albumin 3.7, Globulin 3.5, Albumin/Globulin Ratio 1.1, PT 39.7 H, INR 3.83 H, APTT 44 H, CBC w Diff MAN DIFF ORDERED, RBC 3.97 L, MCV 92.5, MCH 29.9, RDW 14.3, MPV 6.4 L, Gran % 92.0 H, Lymphocytes % 3.3 L, Monocytes % 4.6, Eosinophils % 0, Basophils % 0.1, Absolute Granulocytes 15.6 H, Segmented Neutrophils 88 H, Band Neutrophils 6 H, Absolute Lymphocytes 0.6 L, Lymphocytes 4 L, Monocytes 2, Absolute Monocytes 0.8 H, Absolute Eosinophils 0 , Absolute Basophils 0, Platelet Estimate ADEQUATE, Normocytic RBCs VERIFIED, Normochromic RBCs VERIFIED, PUBS MCHC 32.3 L Microbiology 10/16 2038 URINE ROUT: Legionella Antigen - COMP 10/16 2038 URINE ROUT: Streptococcus pneumoniae Antigen (M - COMP 10/16 1035 BLOOD: Blood Culture - RECD 10/16 102 LOWER RESP: Respiratory Culture - COLB 10/16 1028 LOWER RESP: Gram Stain - COLB 10/17 1027 BLOOD: Blood Culture - RECD Lines/Diet/Fluids Restraints: none Assessment/Plan Assessment: 61-year-old morbidly obese male with past medical history significant for peripheral vascular disease, pulmonary embolism on Coumadin, peripheral neuropathy,chronic venous stasis, hypertension, hyperlipidemia, prediabetes, chronic obstructive pulmonary disease on 5 L at home, obstructive sleep apnea on BiPAP at night, came to emergency department with chief complaint of 5 day history of cough, increased shortness of breath and somnolence. Patient is currently being admitted on general medicine floor for the management of following problems #1 acute on chronic hypoxemic/hypercarbic respiratory failure #2 bronchiectasis and community acquired pneumonia #3 COPD exacerbation #4 end-stage lung disease on 5 L of oxygen at home #5 morbid obesity with obstructive sleep apnea noncompliant with CPAP at home #6 chronic pain management dependent on narcotics Hpercarbic hypoxemic Respiratory failure/ COPD exacerbation Most likely cause of hypercarbic and hypoxemic respiratory failure secondary to noncompliance with CPAP as patient has significant obstructive sleep apnea and does not wear CPAP machine at all. - Currently Afebrile - Hemodynamically stable - No chest Pain but does c/o chest pressure - WBC count - 17 Patient received ceftriaxone and azithromycin along with ipratropium and albuterol inhaler in emergency department. - Admit to General Medicine Floor - Vitals Q shift - Oxygen by nasal canula as required, taper as tolerated -Continue Tiotropium Inhaler 1 puff daily -Continue Symicort Inhaler 2 puffs inhaler BID -Continue IV Steroids Methylprednisone 40mg Q12 IV - Taper Steroids with clinical improvement - TRC Nebs as needed - Repeat ABG showed improvement on BiPAP. A pH of 7.37, hypercarbia improved from 61-54 - Pulmo Consult Sepsis secondary to pneumonia Patient meets the criteria for sepsis on admission with a white count of 19, tachypnea, tachycardia and source of infection in the lungs. As per pulmonary recommendations patient has bronchiectasis and staph aureus in blood in the past and therefore will gave vancomycin. Patient is currently on ceftazidime and azithromycin as per pulmonary recommendations. History of pulmonary embolism Continue Coumadin Hold Coumadin dose today Adjust Coumadin dose as per INR Acute metabolic encephalopathy/Chronic pain management Metabolic encephalopathy secondary to narcotics 82 hypercarbia. Patient follows up with a specialist for pain management. He was on narcotics Oxycodone HCl 30 MG TABLET 1 TAB PO Q4-6 PRN PRN PAIN. We held off on narcotics as patient was very somnolent in emergency department and received Narcan 0.2 mg in emergency department and was more active and alert after that. We can slowly resume narcotics as patient is more alert. Patient is full code Patient is on Coumadin for DVT prophylaxis Patient is on heart healthy diet Patient is on pain management Problem List: 1. COPD (chronic obstructive pulmonary disease) 2. Hypercarbia 3. History of pulmonary embolism 4. Shortness of breath Pain Ratin Pain Location: NA Pain Goal: Pain 4 or less Pain Plan: Continue current pain management Tomorrow's Labs & Rationales: CBC for leukocytosis BEP for electrolyte abnormalities DVT/Prophylaxis: pharmacological ISABELL GIBBONS 10/17/16 0927: Attending MD Review Statement Attending Statement Attending MD Statement: examined this patient, discuss w/resident/PA/STEAM CRANE OPERATOR, agreed w/resident/PA/STEAM CRANE OPERATOR, discussed with family, reviewed EMR data (avail), discussed with nursing, discussed with case mgmt, reviewed images, amended to note Attending Assessment/Plan: ASSESSMENT 1. Acute on chronic respiratory failure 2. COPD exacerbation with bronchiectasis 3. Pneumonia 4. Sepsis 2/2 above. 5. Severe COPD disease on home oxygen 5l 6. [place] non complaint with CPAP 7. Pulmonary hypertension 8. H/o PE on warfarin 9. Chronic venous stasis and wound 10. Chronic pain on narcotics 11. Supratherapeutic INR PLAN admit to inpatient medical services BIPAP, repeat ABG, i/v steroids, i/v abx, blood culture, sputum analysis, LA wnl , Pulm f/u trial of narcan improved mental status, CT chest with contrast f/u, ECHO with Normal systolic function. warfarin hold for today, c/w a/c as home meds avoid narcotics, f/u o/p pain management, wound consult. resume home meds gi/dvt prophyalxis full code
--- NOTE | 2016-10-17 11:33 | PN- Pulmonary ---
Subjective HPI/Critical Care Issues: He was switched to nasal cannula and currently saturating 92% on 5 L which is his baseline. He remained afebrile overnight Review of Systems Constitutional: Denies: chills, fever. EENTM: Denies: visual changes. Cardiovascular: Denies: chest pain, palpitations. Respiratory: Reports: short of breath. Denies: cough. Gastrointestinal: Denies: abdominal pain, nausea, vomiting. Genitourinary: Denies: discharge. Objective Current Medications: Current Medications Sig/Bernice Start time Last Medication Dose Route Stop Time Status Admin Acetaminophen 650 MG Q6P PRN 10/16 1300 AC PO Albuterol Sulfate 3 ML TID 10/16 2200 AC 10/17 INH 0802 Aspirin 81 MG DAILY 10/17 1000 AC 10/17 PO 1102 Atorvastatin Calcium 80 MG 1700 10/16 1700 AC 10/16 PO 1716 Azithromycin 500 MG DAILY 10/17 1000 AC 10/17 Sodium Chloride 250 ML IV 1057 Azithromycin 500 MG ONCE ONE 10/16 1130 DC 10/16 Sodium Chloride 250 ML IV 10/16 1229 1130 Ceftazidime 2,000 MG IQ8 10/17 0000 AC 10/17 IV 1054 Ceftazidime 1,000 MG ONCE ONE 10/16 1500 DC 10/16 IV 10/16 1501 1915 Ceftriaxone Sodium 0 .STK-MED ONE 10/16 1133 DC .ROUTE Ceftriaxone Sodium 1,000 MG ONCE ONE 10/16 1130 DC 10/16 IV 10/16 1131 1130 Duloxetine HCl 60 MG QPM 10/16 2200 AC 10/16 PO 2119 Fenofibrate 48 MG DAILY 10/17 1000 AC 10/17 PO 1102 Ferrous Sulfate 325 MG DAILY 10/17 1000 AC 10/17 PO 1102 Furosemide 40 MG DAILY 10/17 1000 AC 10/17 PO 1102 Lisinopril 20 MG DAILY 10/17 1000 AC 10/17 PO 1102 Methylprednisolone 40 MG Q12 10/17 1000 AC 10/17 IV 1106 Methylprednisolone 40 MG Q8 10/17 0600 DC IV Morphine Sulfate 0.5 MG Q6P PRN 10/16 1300 DC IV Naloxone HCl 0.2 MG ONCE ONE 10/16 1430 DC 10/16 IV 10/16 1431 1421 Naloxone HCl 0 .STK-MED ONE 10/16 1421 DC .ROUTE Oxycodone HCl 5 MG Q6P PRN 10/16 1300 DC PO Tiotropium [place] 1 PUF DAILY 10/16 1258 AC 10/17 INH 1103 Vancomycin HCl 1,000 MG ONCE ONE 10/16 2245 CAN Sodium Chloride 250 ML IV 10/16 2344 Vancomycin HCl 1,000 MG ONCE ONE 10/16 1500 DC 10/16 Sodium Chloride 250 ML IV 10/16 1559 2028 Vital Signs & I&O Last 24 Hrs of Vitals and I&O: Vital Signs Date Time Temp Pulse Resp B/P B/P Pulse O2 O2 Flow FiO2 Mean Ox Delivery Rate 10/17 0803 92 Nasal 5.0L Cannula 10/17 0657 97.9 82 22 132/90 92 Nasal 5.0L Cannula 10/17 0000 92 Nasal 4.5L Cannula 10/16 1838 Nasal 4.5L Cannula 10/16 1600 97.9 89 22 135/70 90 Nasal 4.0L Cannula 10/16 1530 90 Nasal 4.0L Cannula 10/16 1350 96.0 102 20 114/70 93 BIPAP 10/16 1348 83 95 10/16 1238 97.0 62 20 118/62 94 Nasal 6.0L Cannula Intake & Output 10/17 1600 10/17 0800 10/17 0000 Intake Total 730 400 Output Total 400 300 Balance 330 100 Intake, IV 250 Intake, Oral 480 400 Output, Urine 400 300 Impression/Plan Impression/Plan Impression/Plan: Physical Exam General Appearance Alert, Oriented X3, Cooperative, Mild Distress ON BIPAP IN ED HEENT Atraumatic Neck Supple Cardiovascular Regular Rate, Normal S1, Normal S2, No Murmurs Lungs bilateral wheezing on lung examination Abdomen Normal Bowel Sounds, Soft, No Tenderness Neurological Normal Speech, Normal Tone, Sensation Intact SIGNIFICANT DATA ABGs reviewed showed significant hypercarbia Chest x-ray showed significant pulmonary emphysema traction bronchiectasis left upper lobe with new consolidation in the left lower lobe nonspecific probable pneumonia Previous CT of the abdomen reviewed which was unremarkable nonobstructing renal calculi Previous chest x-ray was similar Echocardiogram done in 2013 showed normal ejection fraction. Medications reviewed IMPRESSION This is a 61-year-old gentleman with morbid obesity, significant smoking history with severe emphysema, peripheral vascular disease, remote history of pulmonary embolism on chronic anticoagulation, significant peripheral neuropathy, chronic venous stasis and lower extremity edema with recurrent cellulitis in the past, hypertension, hyperlipidemia, prediabetes, obstructive sleep apnea on CPAP noncompliant at home comes in with * Resolved Acute on chronic hypercarbic respiratory failure related to worsening COPD with COPD exacerbation and left lower lobe pneumonia. This is made worse by narcotic use with hypercarbia * Left lower lobe pneumonia in a patient with left upper lobe bronchiectasis high risk for pseudomonas * Significant sepsis with bandemia improving * End-stage lung disease on home oxygen therapy * Morbid obesity with obstructive sleep apnea noncompliant with CPAP * Pulmonary hypertension with hypercarbia due to sleep apnea and end-stage COPD * Chronic venostasis with chronic cor pulmonale * Chronic narcotics use for pain which is also contributing to hypercarbia * Remote history of venous thromboembolism now on anticoagulation appropriately anticoagulated * Hypertension, hyperlipidemia, depression, diabetes versus glucose intolerance relatively stable * Significant peripheral neuropathy with pain * Previous history of alcoholism now has quit drinking * More than 64-[id number] smoking history seems to have quit recently RECOMMENDATION * Continue BiPAP therapy only if needed if not can dc * Lasix daily, give potassium 40 meq daily as well * CT scan of the chest with IV contrast to evaluate his lungs * Depending on ct result can switch to [place] later * Sputum culture * Po prednisone 40 and taper in 8 days * Resume low dose narcotics prob 40 -50 percent of out pt dose to avoid withdrawal * [id number] nebulizer therapy * Check his INR daily * Lower extremity Dopplers Will follow closely
--- NOTE | 2016-10-17 13:15 | ULTRASOUND REPORT ---
EXAMINATION: BILATERAL LOWER EXTREMITY VENOUS ULTRASOUND CLINICAL INFORMATION: Shortness of breath. Leg edema and swelling. Evaluate for DVT. History of PE about 6 years ago. COMPARISON: Bilateral lower extremity venous Doppler ultrasound dated 02/21/2014. TECHNIQUE: Doppler spectral analysis and color flow Doppler imaging was performed of the lower extremities. Compression and augmentation maneuvers were performed. FINDINGS: Evaluation is limited due to the extensive soft tissue edema and the patient's body habitus. The right and left common femoral vein, greater saphenous vein takeoff, femoral vein, and popliteal vein down to the tibia peroneal trunk are normally compressible with normal augmentation responses and phasic changes seen with Doppler imaging. The [place]calf peroneal and posterior tibial veins are not visualized. No popliteal cyst is seen. IMPRESSION: 1. No evidence of deep venous thrombosis in the right or left side down to the knee. 2. Calf veins not seen. Depending on clinical circumstances, follow-up ultrasound in 7-10 days can be performed to exclude proximal clot propagation from a nonvisualized calf vein.
[2016-10-17 14:15] VITALS: BP 126/86
--- NOTE | 2016-10-17 14:53 | CT SCAN REPORT ---
EXAMINATION: CT CHEST WITH CONTRAST CLINICAL INFORMATION: Worsening COPD. Left lower lobe pneumonia. COMPARISON: Chest x-ray dated 10/16/2016, 02/25/2014. TECHNIQUE: Multidetector volumetric CT imaging of the chest was obtained after the administration of 62 mL of intravenous Optiray 320. Sagittal and coronal reformations were obtained. DLP: 670.37 mGy-cm. FINDINGS: LUNGS: Severe paraseptal and centrilobular emphysema seen most prominent in the upper lobes but involving all lobes. There is extensive biapical bullous emphysematous change and associated ill-defined areas of lung parenchymal distortion with reticular nodular appearance in the lung apices bilaterally, left greater than right. There are associated areas of traction bronchiectasis in the left upper lobe. These findings are most likely related to extensive areas of scarring. Additional areas of lung parenchymal distortion and scarring are seen inferiorly within the medial right upper lobe. There is patchy area of consolidation in the lingula. There are dependent atelectatic changes seen in both lower lobes and in the dependent portions of the lingula and right middle lobe. The airways are diffusely thickened bilaterally and remain patent. PLEURA: There is no pleural effusion. No pleural mass or thickening. LYMPHATIC STRUCTURES: There is an abnormal right hilar lymph node, measuring 1.7 cm in short axis. Borderline enlarged 1 cm diameter left infrahilar lymph node (series 2, image 30) and left hilar lymph node (series 2, image 25) are seen. Other subcentimeter sized mediastinal lymph nodes are noted. No mediastinal or axillary adenopathy. THYROID GLAND: Unremarkable. CARDIOVASCULAR STRUCTURES: Aortic and heart size normal. Mild coronary artery calcifications. No pericardial effusion. UPPER ABDOMEN: There is fatty infiltration of the pancreatic head. Included portions of the solid organs in the upper abdomen otherwise unremarkable. OSSEOUS STRUCTURES: Diffuse moderate vertebral endplate spurring and convex right thoracic scoliosis seen. No suspicious focal findings. IMPRESSION: 1. Severe emphysema with extensive bilateral upper lobe areas of fibrosis with secondary traction bronchiectasis. Findings are more advanced in the left lung apex than the right. 2. Patchy areas of parenchymal consolidation seen in the lingula, consistent with the findings on recent plain film. Follow-up CT scan is recommended to document complete resolution of this finding post treatment. 3. Abnormal bilateral hilar lymph nodes are seen. Findings are possibly related to reactive adenopathy. Attention on follow-up imaging is recommended.
--- NOTE | 2016-10-17 18:17 | NUR ---
PT'S O2 INCREASED TO 5L. PATIENT SATING 93% ON 5L. EXERTIONAL SOB. PT'S BILAT LOWER EXT DRSNG CHANGED. PT TOLERATED PROCEDURE WELL. AT BEDSIDE.
[2016-10-17 22:25] VITALS: BP 120/74
[2016-10-18 06:25] VITALS: BP 128/74
--- NOTE | 2016-10-18 06:48 | PN- Housestaff ---
LITO CHAVEZ MD,HAYDEE 10/18/16 0648: Subjective Follow-up For: Acute hypoxemic hypercarbic respiratory failure COPD exacerbation Community-acquired pneumonia Obstructive Sleep apnea noncompliant with CPAP History of PE on Coumadin Chronic pain management Complaints: no complaints Subjective: Patient remained afebrile overnight. He did not complain of any acute shortness of breath and chest pain. Patient is currently on 5 L of nasal cannula and saturating 94, 93%. Review of Systems Constitutional: Denies: chills, fever. EENTM: Denies: visual changes. Cardiovascular: Denies: chest pain, palpitations. Respiratory: Reports: short of breath. Denies: cough. Gastrointestinal: Denies: abdominal pain, nausea, vomiting. Genitourinary: Denies: discharge. Objective Last 24 Hrs of Vital Signs/I&O Vital Signs Date Time Temp Pulse Resp B/P B/P Pulse O2 O2 Flow FiO2 Mean Ox Delivery Rate 10/18 0625 98.4 81 20 128/74 94 Nasal 5.0L Cannula 10/18 0000 Nasal 5.0L Cannula 10/17 2225 98.2 81 20 120/74 93 Nasal 5.0L Cannula 10/17 1935 93 Nasal 4.5L Cannula 10/17 1415 97.4 80 22 126/86 95 Nasal 5.0L Cannula 10/17 0803 92 Nasal 5.0L Cannula 10/17 0800 Nasal 4.5L Cannula Intake & Output 10/18 0800 10/18 0000 10/17 1600 Intake Total 480 480 800 Output Total Balance 480 480 800 Intake, Oral 480 480 800 Number 1 Bowel Movements Physical Exam General Appearance: Alert, Oriented X3, Cooperative, No Acute Distress HEENT: Atraumatic Neck: Supple Cardiovascular: Regular Rate, Normal S1, Normal S2, No Murmurs Lungs: Bilateral wheezing on lung examination Abdomen: Normal Bowel Sounds, Soft, No Tenderness Neurological: Normal Speech, Normal Tone, Sensation Intact Extremities: Bilateral lower extremities covered with dressing for chronic wounds Current Medications: Current Medications Sig/Bernice Start time Last Medication Dose Route Stop Time Status Admin Acetaminophen 650 MG Q6P PRN 10/16 1300 AC PO Albuterol Sulfate 3 ML TID 10/16 2200 AC 10/17 INH 1935 Aspirin 81 MG DAILY 10/17 1000 AC 10/17 PO 1102 Atorvastatin Calcium 80 MG 1700 10/16 1700 AC 10/17 PO 1551 Azithromycin 500 MG DAILY 10/17 1000 DC 10/17 Sodium Chloride 250 ML IV 1057 Ceftazidime 2,000 MG IQ8 10/17 0000 DC 10/17 IV 1552 Duloxetine HCl 60 MG QPM 10/16 2200 AC 10/17 PO 2115 Fenofibrate 48 MG DAILY 10/17 1000 AC 10/17 PO 1102 Ferrous Sulfate 325 MG DAILY 10/17 1000 AC 10/17 PO 1102 Furosemide 40 MG DAILY 10/17 1000 AC 10/17 PO 1102 Lisinopril 20 MG DAILY 10/17 1000 AC 10/17 PO 1102 Melatonin 5 MG ONCE ONE 10/17 2130 DC PO 10/17 213 Methylprednisolone 40 MG Q12 10/17 1000 DC 10/17 IV 1106 Moxifloxacin HCl 400 MG DAILY 10/18 1000 AC PO Oxycodone HCl 5 MG Q6 PRN 10/17 1500 AC PO Potassium Chloride 40 MEQ DAILY 10/17 1453 AC 10/17 PO 1552 Prednisone 10 MG 10/23 AC PO 10/24 2000 Prednisone 20 MG 2000 10/22 1999 AC PO 10/22 2000 Prednisone 30 MG 10/19 AC PO 10/20 2000 Prednisone 40 MG TAPER 10/18 1999 CAN PO 10/25 1958 Prednisone 40 MG 10/17 AC 10/17 PO 10/18 2000 211 Tiotropium [place] 1 PUF DAILY 10/16 1258 AC 10/17 INH 1103 Last 24 Hrs of Lab/[place] Results Last 24 Hrs of Labs/Mics: Laboratory Tests 10/18/16 0640: Sodium Pending, Potassium Pending, Chloride Pending, Carbon Dioxide Pending, Anion Gap Pending, BUN Pending, Creatinine Pending, BUN/Creatinine Ratio Pending , PT Pending, INR Pending, CBC w Diff Pending, WBC Pending, RBC Pending, Hgb Pending, Hct Pending, MCV Pending, MCH Pending, RDW Pending, Plt Count Pending, MPV Pending, PUBS MCHC Pending Assessment/Plan Assessment: 61-year-old morbidly obese male with past medical history significant for peripheral vascular disease, pulmonary embolism on Coumadin, peripheral neuropathy,chronic venous stasis, hypertension, hyperlipidemia, prediabetes, chronic obstructive pulmonary disease on 5 L at home, obstructive sleep apnea on BiPAP at night, came to emergency department with chief complaint of 5 day history of cough, increased shortness of breath and somnolence. Patient is currently being admitted on general medicine floor for the management of following problems #1 acute on chronic hypoxemic/hypercarbic respiratory failure #2 bronchiectasis and community acquired pneumonia #3 COPD exacerbation #4 end-stage lung disease on 5 L of oxygen at home #5 morbid obesity with obstructive sleep apnea noncompliant with CPAP at home #6 chronic pain management dependent on narcotics Hpercarbic hypoxemic Respiratory failure/ COPD exacerbation Most likely cause of hypercarbic and hypoxemic respiratory failure secondary to noncompliance with CPAP as patient has significant obstructive sleep apnea and does not wear CPAP machine at all. - Currently Afebrile - Hemodynamically stable - No chest Pain but does c/o chest pressure - WBC count - Pending Patient received ceftriaxone and azithromycin along with ipratropium and albuterol inhaler in emergency department. - Admit to General Medicine Floor - Vitals Q shift - Oxygen by nasal canula as required, taper as tolerated -Continue Tiotropium Inhaler 1 puff daily -Continue Symicort Inhaler 2 puffs inhaler BID -IV Steroids Methylprednisone switched to by mouth steroids as per pulmonology recommendations - Taper Steroids with clinical improvement - TRC Nebs as needed - Repeat ABG showed improvement on BiPAP. A pH of 7.37, hypercarbia improved from 61-54 - Pulmo Consult Sepsis secondary to pneumonia Patient meets the criteria for sepsis on admission with a white count of 19, tachypnea, tachycardia and source of infection in the lungs. As per pulmonary recommendations patient has bronchiectasis and staph aureus in blood in the past and therefore will gave vancomycin. Patient was on ceftazidime and azithromycin which was stopped yesterday and switched to Avelox as per pulmonary recommendations. History of pulmonary embolism Continue Coumadin Hold Coumadin dose today Adjust Coumadin dose as per INR Acute metabolic encephalopathy/Chronic pain management Metabolic encephalopathy secondary to narcotics 82 hypercarbia. Patient follows up with a specialist for pain management. He was on narcotics Oxycodone HCl 30 MG TABLET 1 TAB PO Q4-6 PRN PRN PAIN. We held off on narcotics as patient was very somnolent in emergency department and received Narcan 0.2 mg in emergency department and was more active and alert after that. We resumed narcotics, oxycodone 5 mg every 6 when necessary. Patient is full code Patient is on Coumadin for DVT prophylaxis Patient is on heart healthy diet Patient is on pain management Problem List: 1. Hypercarbia 2. COPD (chronic obstructive pulmonary disease) 3. History of pulmonary embolism 4. Shortness of breath Pain Ratin Pain Location: NA Pain Goal: Pain 4 or less Pain Plan: Continue current pain medications Tomorrow's Labs & Rationales: CBC for leukocytosis BEP for monitoring electrolytes DVT/Prophylaxis: mechanical, pharmacological ISABELL GIBBONS 10/18/16 0953: Attending MD Review Statement Attending Statement Attending MD Statement: examined this patient, discuss w/resident/PA/TUBE DEPATCHER, agreed w/resident/PA/TUBE DEPATCHER, discussed with family, reviewed EMR data (avail), discussed with nursing, discussed with case mgmt, reviewed images, amended to note Attending Assessment/Plan: Patient improved clinically, Vitals stable. ASSESSMENT 1. Acute on chronic respiratory failure 2. COPD exacerbation with bronchiectasis 3. Pneumonia 4. Sepsis 2/2 above. 5. Severe COPD disease on home oxygen 5l 6. [place] non complaint with CPAP 7. Pulmonary hypertension 8. H/o PE on warfarin 9. Chronic venous stasis and wound 10. Chronic pain on narcotics 11. Supratherapeutic INR PLAN admit to inpatient medical services BIPAP, repeat ABG, PO steroids, PO abx, blood culture negative, LA wnl, Pulm following trial of narcan improved mental status, CT chest with contrast reviewed. ECHO with Normal systolic function. warfarin hold for today, c/w a/c as home meds avoid narcotics, f/u o/p pain management, wound consult. resume home meds gi/dvt prophyalxis full code anticipate d/c in 24-48 hrs, d/c home, patient education give, encourage compliance
[2016-10-18 08:33] LABS: PT 26.7 SEC (9.4-12.5)
[2016-10-18 08:42] LABS: ABSOLUTE BASOPHIL COUNT 0 /CUMM (0.0-0.2); ABSOLUTE EOSINOPHIL COUNT 0 /CUMM (0.0-0.7); ABSOLUTE GRANULOCYTE CT 11.4 /CUMM (1.4-6.5); ABSOLUTE LYMPH COUNT 0.6 /CUMM (1.2-3.4); ABSOLUTE MONOCYTE COUNT 0.5 /CUMM (0.10-0.60); BASOPHIL % 0 % (0.0-2.0); EOSINOPHIL % 0 % (0-5); HEMATOCRIT 34.8 % (42-52); MEAN CORPUSCULAR HGB 30.1 PG (27.0-31.0); MEAN CORPUSCULAR HGB CONC 32.9 G/DL (33.0-37.0); MEAN CORPUSCULAR VOLUME 91.4 FL (80.0-94.0); MEAN PLATELET VOLUME 7.1 FL (7.4-10.4); PLATELET COUNT 368 /CUMM (130-400); RBC DISTRIBUTION WIDTH 14.5 % (11.5-14.5); RED BLOOD CELL CT 3.81 /CUMM (4.70-6.10); WHITE BLOOD CELL COUNT 12.4 /CUMM (4.8-10.8)
[2016-10-18 09:34] LABS: GRANULOCYTE % 91.2 % (42.2-75.2)
--- NOTE | 2016-10-18 13:53 | PN- Pulmonary ---
Subjective HPI/Critical Care Issues: Patient remained afebrile overnight. He did not complain of any acute shortness of breath and chest pain. Patient is currently on 5 L of nasal cannula and saturating 94, 93%. Review of Systems Constitutional: Denies: chills, fever. EENTM: Denies: visual changes. Cardiovascular: Denies: chest pain, palpitations. Respiratory: Reports: short of breath. Denies: cough. Gastrointestinal: Denies: abdominal pain, nausea, vomiting. Genitourinary: Denies: discharge. Objective Current Medications: Current Medications Sig/Bernice Start time Last Medication Dose Route Stop Time Status Admin Acetaminophen 650 MG Q6P PRN 10/16 1300 AC PO Albuterol Sulfate 3 ML TID 10/16 2200 AC 10/18 INH 1339 Aspirin 81 MG DAILY 10/17 1000 AC 10/18 PO 0805 Atorvastatin Calcium 80 MG 1700 10/16 1700 AC 10/17 PO 1551 Azithromycin 500 MG DAILY 10/17 1000 DC 10/17 Sodium Chloride 250 ML IV 1057 Ceftazidime 2,000 MG IQ8 10/17 0000 DC 10/17 IV 1552 Duloxetine HCl 60 MG QPM 10/16 2200 AC 10/17 PO 2115 Fenofibrate 48 MG DAILY 10/17 1000 AC 10/18 PO 0804 Ferrous Sulfate 325 MG DAILY 10/17 1000 AC 10/18 PO 0805 Furosemide 40 MG DAILY 10/17 1000 AC 10/18 PO 0804 Lisinopril 20 MG DAILY 10/17 1000 AC 10/18 PO 0805 Melatonin 5 MG ONCE ONE 10/17 2130 DC PO 10/17 2131 Methylprednisolone 40 MG Q12 10/17 1000 DC 10/17 IV 1106 Moxifloxacin HCl 400 MG DAILY 10/18 1000 AC 10/18 PO 0805 Oxycodone HCl 5 MG Q6 PRN 10/17 1500 AC PO Potassium Chloride 40 MEQ DAILY 10/17 1453 AC 10/18 PO 0805 Prednisone 10 MG 10/23 AC PO 10/24 2000 Prednisone 20 MG 10/21 AC PO 10/22 2000 Prednisone 30 MG 10/19 AC PO 10/20 2000 Prednisone 40 MG TAPER 10/18 1999 CAN PO 10/25 195 Prednisone 40 MG 10/17 AC 10/17 PO 10/18 2000 2115 Tiotropium [place] 1 PUF DAILY 06/21 1258 AC 10/18 INH 0804 Vital Signs & I&O Last 24 Hrs of Vitals and I&O: Vital Signs Date Time Temp Pulse Resp B/P B/P Pulse O2 O2 Flow FiO2 Mean Ox Delivery Rate 10/18 0859 94 Nasal 4.5L Cannula 10/18 0805 81 128/74 10/18 0800 Nasal 5.0L Cannula 10/18 0625 98.4 81 20 128/74 94 Nasal 5.0L Cannula 10/18 0000 Nasal 5.0L Cannula 10/17 2225 98.2 81 20 120/74 93 Nasal 5.0L Cannula 10/17 1935 93 Nasal 4.5L Cannula 10/17 1415 97.4 80 22 126/86 95 Nasal 5.0L Cannula Intake & Output 10/18 1600 10/18 0800 10/18 0000 Intake Total 480 480 Output Total Balance 480 480 Intake, Oral 480 480 Number 1 Bowel Movements Laboratory Tests 10/18 10/17 0640 0630 Chemistry Sodium (137 - 145 mmol/L) 140 139 Potassium (3.5 - 5.1 mmol/L) 4.1 3.9 Chloride (98 - 107 mmol/L) 96 L 98 Carbon Dioxide (22 - 30 mmol/L) 34 H 31 H Anion Gap (5 - 16) 10 10 BUN (9 - 20 mg/dL) 21 H 19 Creatinine (0.7 - 1.2 mg/dL) 0.8 0.8 Estimated GFR (>60 ml/min) > 60 > 60 BUN/Creatinine Ratio (7 - 25 %) 26.3 H 23.8 Coagulation PT (9.4 - 12.5 SEC) 26.7 H 37.4 H INR (0.90 - 1.17) 2.57 H 3.61 H Hematology CBC w Diff NO MAN DIFF REQ MAN DIFF ORDERED WBC (4.8 - 10.8 /CUMM) 12.4 H 14.7 H RBC (4.70 - 6.10 /CUMM) 3.81 L 3.77 L Hgb (14.0 - 18.0 G/DL) 11.5 L 11.3 L Hct (42 - 52 %) 34.8 L 34.8 L MCV (80.0 - 94.0 FL) 91.4 92.2 MCH (27.0 - 31.0 PG) 30.1 30.0 RDW (11.5 - 14.5 %) 14.5 14.1 Plt Count (130 - 400 /CUMM) 368 312 MPV (7.4 - 10.4 FL) 7.1 L 7.1 L Gran % (42.2 - 75.2 %) 91.2 H 92.7 H Lymphocytes % (20.5 - 51.1 %) 5.0 L 3.4 L Monocytes % (1.7 - 9.3 %) 3.8 3.9 Eosinophils % (0 - 5 %) 0 0 Basophils % (0.0 - 2.0 %) 0 L 0 L Absolute Granulocytes (1.4 - 6.5 /CUMM) 11.4 H 13.6 H Absolute Lymphocytes (1.2 - 3.4 /CUMM) 0.6 L 0.5 L Absolute Monocytes (0.10 - 0.60 /CUMM) 0.5 0.6 Absolute Eosinophils (0.0 - 0.7 /CUMM) 0 0 Absolute Basophils (0.0 - 0.2 /CUMM) 0 0 Platelet Estimate (ADEQUATE) VERIFIED BY SMEAR Polychromasia 1+ Basophilic Stippling 1+ PUBS MCHC (33.0 - 37.0 G/DL) 32.9 L 32.5 L 10/16 Blood Gas pH (7.35 - 7.45 PH) 7.37 pCO2 (35 - 45 TORR) 54 H pO2 (80 - 100 TORR) 67 L HCO3 (21 - 28 MEQ/L) 30 H ABG O2 Sat (Measured) (>96.0 %) 92.0 L P-50 (Temp Corrected) N Carboxyhemoglobin (1.5 - 5.0 %) 0.2 L O2 Concentration % 4.5L Temperature (97.0 - 100.0 FARH) 97.9 O2 Delivery Method NC Miscellaneous Phlebotomy Draw Site RIGHT RADIAL Toxicology Urine Opiates Screen (>2000 NG/ML) 625.00 Methadone Screen (>300 NG/ML) 51 Barbiturate Screen (>200 NG/ML) < 60 Ur Phencyclidine Scrn (>25 NG/ML) < 6.00 Amphetamines Screen (>1000 NG/ML) 391 U Benzodiazepines Scrn (>200 NG/ML) < 85 Urine Cocaine Screen (>300 NG/ML) < 50 Urine Cannabis Screen (>50 NG/ML) < 5.00 Urines Urinalysis LIGHT H Urine Color (YEL,AMB,STR) YEL Urine Clarity (CLEAR) CLEAR Urine pH (5.0 - 8.0) 6.0 Ur Specific [place] (1.001 - 1.035) >= 1.030 Urine Protein (NEG,<30 MG/DL) TRACE H Urine Ketones (NEG) NEG Urine Nitrite (NEG) NEG Urine Bilirubin (NEG) NEG Urine Urobilinogen (0.1 - 1.0 EU/dl) 2.0 H Ur Leukocyte Esterase (NEG) NEG Ur Microscopic SEDIMENT EXAMINED Urine RBC (0 - 5 /HPF) RARE Ur Epithelial Cells (NONE,FEW) FEW Hyaline Casts (0/LPF) RARE H Urine Mucus (FEW,NONE) MOD H Urine Hemoglobin (NEG) NEG Urine Glucose (N MG/DL) 250 H Microbiology Date/Time Procedure - Status Source Growth 10/16 2038 Legionella Antigen - COMP URINE ROUT 10/16 2038 Streptococcus pneumoniae Antigen (M - COMP URINE ROUT 10/16 1035 Blood Culture - RES BLOOD 10/16 1029 Respiratory Culture - CAN LOWER RESP Cancelled: NO SPUTUM COLLECTED. 10/16 1029 Gram Stain - CAN LOWER RESP Cancelled: NO SPUTUM COLLECTED. 10/16 1028 Blood Culture - RES BLOOD Impression/Plan Impression/Plan Impression/Plan: Physical Exam General Appearance Alert, Oriented X3, Cooperative, Mild Distress ON BIPAP IN ED HEENT Atraumatic Neck Supple Cardiovascular Regular Rate, Normal S1, Normal S2, No Murmurs Lungs bilateral wheezing on lung examination Abdomen Normal Bowel Sounds, Soft, No Tenderness Neurological Normal Speech, Normal Tone, Sensation Intact SIGNIFICANT DATA ABGs reviewed showed significant hypercarbia Chest x-ray showed significant pulmonary emphysema traction bronchiectasis left upper lobe with new consolidation in the left lower lobe nonspecific probable pneumonia Previous CT of the abdomen reviewed which was unremarkable nonobstructing renal calculi Previous chest x-ray was similar Echocardiogram done in 2014 showed normal ejection fraction. CT chest IMPRESSION: 1. Severe emphysema with extensive bilateral upper lobe areas of fibrosis with secondary traction bronchiectasis. Findings are more advanced in the left lung apex than the right. 2. Patchy areas of parenchymal consolidation seen in the lingula, consistent with the findings on recent plain film. Follow-up CT scan is recommended to document complete resolution of this finding post treatment. 3. Abnormal bilateral hilar lymph nodes are seen. Findings are possibly related to reactive adenopathy. Attention on follow-up imaging is recommended. DICTATED BY: JEFFRY ALBARRAN,CHARBEL Emanuel DATE/TIME DICTATED:10/17/16 / 1431 IMPRESSION This is a 61-year-old gentleman with morbid obesity, significant smoking history with severe emphysema, peripheral vascular disease, remote history of pulmonary embolism on chronic anticoagulation, significant peripheral neuropathy, chronic venous stasis and lower extremity edema with recurrent cellulitis in the past, hypertension, hyperlipidemia, prediabetes, obstructive sleep apnea on CPAP noncompliant at home comes in with * Resolved Acute on chronic hypercarbic respiratory failure related to worsening COPD with COPD exacerbation and left lower lobe pneumonia. This is made worse by narcotic use with hypercarbia * Left lingular pna in a patient with left upper lobe bronchiectasis high risk for pseudomonas * Significant sepsis with bandemia improving * End-stage lung disease on home oxygen therapy, ct suggests severe Emphesema with sig fibrosis and scar a sequelae from previous infections * Bilateral hilar lymphadenopathy prob reactive needs follow up * Morbid obesity with obstructive sleep apnea noncompliant with CPAP * Pulmonary hypertension with hypercarbia due to sleep apnea and end-stage COPD * Chronic venostasis with chronic cor pulmonale * Chronic narcotics use for pain which is also contributing to hypercarbia * Remote history of venous thromboembolism now on anticoagulation appropriately anticoagulated * Hypertension, hyperlipidemia, depression, diabetes versus glucose intolerance relatively stable * Significant peripheral neuropathy with pain * Previous history of alcoholism now has quit drinking * More than [id number] smoking history seems to have quit recently RECOMMENDATION * Po moxi later * Po prednisone 40 and taper in 6 days * [id number] nebulizer therapy * Check his INR daily Ok to dc soon Pt is aware of his ct findings and will follow up with his primary pulm md and accepts all the risks and benefits of compliance Will follow closely
[2016-10-18 14:08] VITALS: BP 120/70
--- NOTE | 2016-10-18 16:55 | NUR ---
A+O X 3. ON 5L O2 VIA NC. DENIES SHORTNESS OF BREATH. DIMINISHED LUNG SOUNDS VITAL SIGNS STABLE. DENIES CHEST PAIN. + PULSES. HX PERIPHRAL NEUROPATHY DSGS TO BLE ARE C/D/I. STEADY GAIT. NO DISCOMFORT/DISTRESS NOTED PATIENT RESTING AT THIS TIME. WILL CONTINUE TO MONITOR
[2016-10-18 22:13] VITALS: BP 128/78
--- NOTE | 2016-10-19 00:32 | Patient Discharge Instructions ---
Discharge Instructions General Discharge Information You were seen/treated for: Acute hypoxemic hypercarbic respiratory failure COPD exacerbation Community-acquired pneumonia Obstructive Sleep apnea noncompliant with CPAP History of PE on Coumadin Chronic pain management Special Instructions: Follow-up with primary care doctor in a week after discharge. Follow-up with front end software engineer in [place] after discharge Compliance with CPAP at all times during night to prevent future recurrence of respiratory failure Follow-up with wound care center for chronic wounds on bilateral lower extremities Diet Continue normal diet: Yes Recommended Diet: Heart Healthy Activity Full Activity/No Limits: Yes Activity Self Limited: No Acute Coronary Syndrome Inclusion Criteria At DC or during hospital stay patient has or had the following: ACS DIAGNOSIS No Discharge Core Measures Meds if any: Prescribed or Continued at Discharge Meds if any: NOT Prescribed or Continued at Discharge Congestive Heart Failure Inclusion Criteria At DC or during hospital stay patient has or had the following: CHF DIAGNOSIS No Discharge Core Measures Meds if any: Prescribed or Continued at Discharge Meds if any: NOT Prescribed or Continued at Discharge Cerebrovascular accident Inclusion Criteria At DC or during hospital stay patient has or had the following: CVA/TIA Diagnosis No Discharge Core Measures Meds if any: Prescribed or Continued at Discharge Meds if any: NOT Prescribed or Continued at Discharge Venous thromboembolism Inclusion Criteria VTE Diagnosis No VTE Type NONE VTE Confirmed by (Test) NONE Discharge Core Measures - Per Current guidelines, there needs to be overlap - treatment for the first 5 days of Warfarin therapy. - If discharged on Warfarin prior to 5 days of - overlap therapy, the patient will need to be - assessed for post discharge needs including - *Post discharge parental anticoagulation - *Warfarin and/or parental anticoagulation education - *Follow up date to check INR post discharge At least 5 days overlap therapy as Inpatient No Meds if any: Prescribed or Continued at Discharge Note: Overlap Therapy is Warfarin and Anticoagulant Meds if any: NOT Prescribed or Continued at Discharge
[2016-10-19] MEDS ORDERED: PREDNISONE10 M2 PO ×2 (00:41→12:18)
[2016-10-19] MEDS ORDERED: MOXIFLOXACIN H400 M2 PO ×2 (00:42→12:18)
--- NOTE | 2016-10-19 00:44 | Discharge Summary ---
Visit Information Visit Dates Admission Date: 10/16/16 Discharge Date: 10/19/16 Hospital Course Course Attending Physician: Isabell Christina MD Primary Care Physician: Isabell Christina MD Hospital Course: 61-year-old morbidly obese male with past medical history significant for peripheral vascular disease, pulmonary embolism on Coumadin, peripheral neuropathy,chronic venous stasis, hypertension, hyperlipidemia, prediabetes, chronic obstructive pulmonary disease on 5 L at home, obstructive sleep apnea on BiPAP at night, came to emergency department with chief complaint of 5 day history of cough, increased shortness of breath and somnolence. Vitals in emergency department patient afebrile, tachycardia, tachypnea, systolic blood pressure 118-131 and diastolic 60-74, oxygen saturation of 90-93% on 6 L of nasal cannula and eventually patient was placed on BiPAP. On examination in emergency department patient was drowsy and somnolent, in mild distress, having difficulty breathing, with significant bilateral wheezing on lung examination, S1 and S2 audible without any murmurs, benign abdominal examination, soft nontender abdomen, bilateral lower extremities covered with dressing for chronic wounds. Labs on admission, significant leukocytosis of 17, band neutrophils of 6, chronic anemia, hemoglobin of 11.9 and hematocrit of 36.7, platelet count of 298 , no significant electrolyte abnormality or renal dysfunction, INR of 3.83, ABG showed respiratory acidosis with PCO2 of 61, pH of 7.28 and bicarbonate of HCO3 on 6 L of nasal cannula. Patient is currently being admitted on general medicine floor for the management of following problems #1 Acute on chronic hypoxemic/hypercarbic respiratory failure #2 Bronchiectasis and community acquired pneumonia #3 COPD exacerbation #4 End-stage lung disease on 5 L of oxygen at home #5 Morbid obesity with obstructive sleep apnea noncompliant with CPAP at home #6 Chronic pain management dependent on narcotics Hpercarbic hypoxemic Respiratory failure/ COPD exacerbation Cause of hypercarbic and hypoxemic respiratory failure was secondary to noncompliance with CPAP as patient has significant obstructive sleep apnea and does not wear CPAP machine at all along with worsening of severe COPD. Patient received ceftriaxone and azithromycin along with ipratropium and albuterol inhaler in emergency department. Patient was also given one dose of 0.2 Narcan and his mentation improved significantly but his U tox was negative for any narcotics. Patient received respiratory care with inhalers, IV Steroids Methylprednisone which were quickly switched to by mouth steroids and tapered as per pulmonology recommendations. Repeat ABG showed improvement on BiPAP. A pH of 7.37, hypercarbia improved from 61-54. Patient was considered at length in the presence of her fianc about the compliance with CPAP machine at home. Sepsis secondary to pneumonia Patient met the criteria for sepsis on admission with a white count of 19, tachypnea, tachycardia and source of infection in the lungs. As per pulmonary recommendations patient had bronchiectasis and staph aureus in blood in the past and therefore we gave vancomycin. Patient was on ceftazidime and azithromycin which was stopped after 1 day and switched to Avelox as per pulmonary recommendations. History of pulmonary embolism Patient has a past medical history significant for pulmonary embolism. He was supratherapeutic on admission we held Coumadin for a few days and restarted Coumadin as per INR later. Acute metabolic encephalopathy/Chronic pain management Metabolic encephalopathy secondary to narcotics and hypercarbia. Patient follows up with a specialist for pain management. He was on narcotics Oxycodone HCl 30 MG TABLET 1 TAB PO Q4-6 PRN PRN PAIN. We held off on narcotics as patient was very somnolent in emergency department and received Narcan 0.2 mg in emergency department and was more active and alert after that. We resumed narcotics, oxycodone 5 mg every 6 when necessary later during the admission. Patient is full code Patient is on Coumadin for DVT prophylaxis Patient is on heart healthy diet Patient is on pain management Allergies: Coded Allergies: NO KNOWN ALLERGIES (03/12/13) Disposition Summary Disposition Principal Diagnosis: Acute hypoxemic hypercarbic respiratory failure COPD exacerbation Community-acquired pneumonia Obstructive Sleep apnea noncompliant with CPAP Additional Diagnosis: History of PE on Coumadin Chronic pain management Discharge Disposition: home or self care Discharge Instructions General Discharge Information Code Status: Full Code Patient's Diet: Heart healthy diet Patient's Activity: As tolerated Follow-Up Instructions/Appts: Follow-up with primary care doctor in a week after discharge. Follow-up with oxidation operator in [place] after discharge Compliance with CPAP at all times during night to prevent future recurrence of respiratory failure Follow-up with wound care center for chronic wounds on bilateral lower extremities Medications at Discharge Discharge Medications: Stop taking the following medications: Oxycodone HCl (Oxycodone HCl) 30 MG TABLET ORAL EVERY 4-6 HOURS NEEDED as needed for PAIN Qty = 140 Continue taking these medications: Gabapentin (Gabapentin) 400 MG CAPSULE 1 Capsule ORAL TWICE DAILY Comments: NOT GIVEN IN HOSPITAL Tiotropium [place] (Spiriva) 18 MCG CAP.W.DEV 1 Capsule Inhale through mouth DAILY Comments: Last Taken: 10/19/16 Time: 0900 AM Warfarin Sodium (Coumadin) 5 MG TABLET 1 Tablet ORAL 5 PM Comments: Last Taken: 10/18/16 Time: 1700 PM Furosemide (Furosemide) 40 MG TABLET 1 Tablet ORAL DAILY Comments: Last Taken: 10/19/16 Time: 0900 AM Fosinopril Sodium (Fosinopril Sodium) 20 MG TABLET 1 Tablet ORAL DAILY Comments: Last Taken: 10/19/16 Time: 0900 AM Duloxetine HCl (Cymbalta) 60 MG CAPSULE.DR 1 Capsule ORAL Every night Comments: Last Taken: 10/18/16 Time: 2200 PM Aspirin (Aspirin*) 81 MG TAB.CHEW 1 Tablet ORAL DAILY Comments: Last Taken: 10/19/16 Time: 0900 AM Atorvastatin Calcium (Atorvastatin Calcium) 80 MG TABLET 1 Tablet ORAL DAILY Qty = 90 Comments: Last Taken: 10/18/16 Time: 1700 PM Fenofibrate Nanocrystallized (Fenofibrate) 48 MG TABLET 1 Tablet ORAL DAILY Qty = 90 Comments: Last Taken: 10/19/16 Time: 0900 AM [place]aks-3 Fatty Acids/Fish Oil (Fish Oil 1,000 MG Capsule) 340 MG-1,000 MG CAPSULE 1 Capsule ORAL TWICE DAILY Comments: NOT GIVEN IN HOSPITAL Ferrous Sulfate (Ferrous Sulfate) 325 MG (65 MG IRON) TABLET 1 Tablet ORAL DAILY Comments: Last Taken: 10/19/16 Time: 0900 AM Mupirocin Calcium (Mupirocin) 2 % CREAM..G. 1 Application On the skin DAILY as needed for CHRONIC WOUNDS Comments: NOT GIVEN IN HOSPITAL Albuterol Sulfate (Proair Hfa) 90 MCG HFA.AER.AD 2 Puff Inhale through mouth EVERY 4-6 HOURS NEEDED as needed for SHORTNESS OF BREATH Qty = 9 Comments: Last Taken: 10/19/16 Time: 0745AM Cholecalciferol (Vitamin D3) (Vitamin D) 1,000 UNIT TABLET 1 Tablet ORAL DAILY Start taking the following new medications: Moxifloxacin HCl (Moxifloxacin HCl) 400 MG TABLET 400 Milligram ORAL DAILY Qty = 5 No Refills Instructions: . Comments: Last Taken: 10/19/16 Time: 0900 AM Prednisone (Prednisone) 10 MG TABLET 1 Tablet ORAL TAPER Qty = 15 No Refills Instructions: SEE COMMENTS FOR INSTRUCTIONS,, Comments: 10/20 4 TABS 10/21-10/22 3 TABS 10/23-10/24 2 TABS 10/25-10/26 1 TAB AND THEN STOP TAKING THIS MEDICATION Last Taken: 10/19/16 Time: 1245 PM Copies To: EDWIGE ALBARRAN,ISABELL
--- NOTE | 2016-10-19 05:59 | PN- Housestaff ---
Subjective Follow-up For: Acute hypoxemic hypercarbic respiratory failure COPD exacerbation Community-acquired pneumonia Obstructive Sleep apnea noncompliant with CPAP History of PE on Coumadin Chronic pain management Complaints: no complaints Subjective: Patient remained afebrile overnight. He did not complain of any acute shortness of breath and chest pain. Patient is currently saturating 92-96% on 5 L of nasal cannula which is baseline at home. Review of Systems Constitutional: Denies: chills, fever. EENTM: Denies: visual changes. Cardiovascular: Denies: chest pain, palpitations. Respiratory: Reports: cough. Denies: short of breath. Gastrointestinal: Denies: abdominal pain, nausea, vomiting. Genitourinary: Denies: discharge. Objective Last 24 Hrs of Vital Signs/I&O Vital Signs Date Time Temp Pulse Resp B/P B/P Pulse O2 O2 Flow FiO2 Mean Ox Delivery Rate 10/19 0000 Nasal 5.0L Cannula 10/18 2213 98.5 89 20 128/78 92 Nasal 5.0L Cannula 10/18 1916 96 Nasal 4.5L Cannula 10/18 1600 94 Nasal 5.0L Cannula 10/18 1408 97.8 80 20 120/70 96 10/18 1100 Nasal 5.0L Cannula 10/18 0859 94 Nasal 4.5L Cannula 10/18 0805 81 128/74 10/18 0800 Nasal 5.0L Cannula Intake & Output 10/19 0800 10/19 0000 10/18 1600 Intake Total 400 350 Output Total 500 Balance -100 350 Intake, Oral 400 350 Output, Urine 500 Physical Exam General Appearance: Alert, Oriented X3, Cooperative, No Acute Distress HEENT: Atraumatic Neck: Supple Cardiovascular: Regular Rate, Normal S1, Normal S2 Lungs: Bilateral wheezing on lung examination significantly improved Abdomen: Normal Bowel Sounds, Soft, No Tenderness Neurological: Normal Speech, Normal Tone, Sensation Intact Extremities: No Clubbing (sinus), bilateral lower extremities covered with surgical dressing for chronic wounds Current Medications: Current Medications Sig/Bernice Start time Last Medication Dose Route Stop Time Status Admin Acetaminophen 650 MG Q6P PRN 10/16 1300 AC PO Albuterol Sulfate 3 ML TID 10/16 2200 AC 10/18 INH 1911 Aspirin 81 MG DAILY 10/17 1000 AC 10/18 PO 0805 Atorvastatin Calcium 80 MG 1700 10/16 1700 AC 10/18 PO 1624 Duloxetine HCl 60 MG QPM 10/16 2200 AC 10/18 PO 2136 Fenofibrate 48 MG DAILY 10/17 1000 AC 10/18 PO 0804 Ferrous Sulfate 325 MG DAILY 10/17 1000 AC 10/18 PO 0805 Furosemide 40 MG DAILY 10/17 1000 AC 10/18 PO 0804 Lisinopril 20 MG DAILY 10/17 1000 AC 10/18 PO 0805 Melatonin 5 MG AT BEDTIME 10/18 2200 AC 10/18 PO 2156 Moxifloxacin HCl 400 MG DAILY 10/18 1000 AC 10/18 PO 0805 Oxycodone HCl 5 MG Q6 PRN 10/17 1500 AC PO Potassium Chloride 40 MEQ DAILY 10/17 1453 AC 10/18 PO 0805 Prednisone 10 MG 10/23 AC PO 10/24 2000 Prednisone 20 MG 10/21 AC PO 10/22 2000 Prednisone 30 MG 10/19 AC PO 10/20 2000 Prednisone 40 MG 10/17 DC 10/18 PO 10/18 2000 1930 Tiotropium [place] 1 PUF DAILY 10/16 1258 AC 10/18 INH 0804 Warfarin Sodium 5 MG COUMADIN 1700 ONE 10/18 1700 DC 10/18 PO 10/18 1701 1625 Lines/Diet/Fluids Lines: peripheral lines Restraints: none Assessment/Plan Assessment: 61-year-old morbidly obese male with past medical history significant for peripheral vascular disease, pulmonary embolism on Coumadin, peripheral neuropathy,chronic venous stasis, hypertension, hyperlipidemia, prediabetes, chronic obstructive pulmonary disease on 5 L at home, obstructive sleep apnea on BiPAP at night, came to emergency department with chief complaint of 5 day history of cough, increased shortness of breath and somnolence. Patient is currently being admitted on general medicine floor for the management of following problems #1 acute on chronic hypoxemic/hypercarbic respiratory failure #2 bronchiectasis and community acquired pneumonia #3 COPD exacerbation #4 end-stage lung disease on 5 L of oxygen at home #5 morbid obesity with obstructive sleep apnea noncompliant with CPAP at home #6 chronic pain management dependent on narcotics Hpercarbic hypoxemic Respiratory failure/ COPD exacerbation Most likely cause of hypercarbic and hypoxemic respiratory failure secondary to noncompliance with CPAP as patient has significant obstructive sleep apnea and does not wear CPAP machine at all. - Currently Afebrile - Hemodynamically stable - No chest Pain but does c/o chest pressure - WBC count - Pending Patient received ceftriaxone and azithromycin along with ipratropium and albuterol inhaler in emergency department. - Admit to General Medicine Floor - Vitals Q shift - Oxygen by nasal canula as required, taper as tolerated -Continue Tiotropium Inhaler 1 puff daily -Continue Symicort Inhaler 2 puffs inhaler BID -IV Steroids Methylprednisone switched to by mouth steroids as per pulmonology recommendations - Taper Steroids with clinical improvement - TRC Nebs as needed - Repeat ABG showed improvement on BiPAP. A pH of 7.37, hypercarbia improved from 61-54 - Pulmo Consult Sepsis secondary to pneumonia Patient meets the criteria for sepsis on admission with a white count of 19, tachypnea, tachycardia and source of infection in the lungs. As per pulmonary recommendations patient has bronchiectasis and staph aureus in blood in the past and therefore will gave vancomycin. Patient was on ceftazidime and azithromycin which was stopped 2 days ago and switched to Avelox as per pulmonary recommendations. History of pulmonary embolism Continue Coumadin Hold Coumadin dose today Adjust Coumadin dose as per INR Acute metabolic encephalopathy/Chronic pain management Metabolic encephalopathy secondary to narcotics 82 hypercarbia. Patient follows up with a specialist for pain management. He was on narcotics Oxycodone HCl 30 MG TABLET 1 TAB PO Q4-6 PRN PRN PAIN. We held off on narcotics as patient was very somnolent in emergency department and received Narcan 0.2 mg in emergency department and was more active and alert after that. We resumed narcotics, oxycodone 5 mg every 6 when necessary. Patient did not require any narcotics during the hospitalization. Patient is full code Patient is on Coumadin for DVT prophylaxis Patient is on heart healthy diet Patient is on pain management Problem List: 1. Hypercarbia 2. History of pulmonary embolism 3. [place] on CPAP 4. COPD (chronic obstructive pulmonary disease) 5. Obstructive chronic bronchitis with exacerbation Pain Ratin Pain Location: NA Pain Goal: Pain 4 or less Pain Plan: Continue current pain medications Tomorrow's Labs & Rationales: Patient might be discharged today
[2016-10-19 07:15] VITALS: BP 124/80
[2016-10-19 08:25] LABS: ABSOLUTE BASOPHIL COUNT 0 /CUMM (0.0-0.2); ABSOLUTE EOSINOPHIL COUNT 0 /CUMM (0.0-0.7); ABSOLUTE GRANULOCYTE CT 9.5 /CUMM (1.4-6.5); ABSOLUTE LYMPH COUNT 1.1 /CUMM (1.2-3.4); ABSOLUTE MONOCYTE COUNT 0.8 /CUMM (0.10-0.60); BASOPHIL % 0.1 % (0.0-2.0); EOSINOPHIL % 0 % (0-5); HEMATOCRIT 38.3 % (42-52); MEAN CORPUSCULAR HGB CONC 32.7 G/DL (33.0-37.0); MEAN CORPUSCULAR VOLUME 91.9 FL (80.0-94.0); MEAN PLATELET VOLUME 6.6 FL (7.4-10.4); PLATELET COUNT 413 /CUMM (130-400); RBC DISTRIBUTION WIDTH 14.8 % (11.5-14.5); RED BLOOD CELL CT 4.17 /CUMM (4.70-6.10); WHITE BLOOD CELL COUNT 11.4 /CUMM (4.8-10.8)
[2016-10-19 08:39] LABS: PT 31.8 SEC (9.4-12.5)
[2016-10-19 09:48] LABS: GRANULOCYTE % 83.2 % (42.2-75.2)
[2016-10-19 15:04] VITALS: BP 158/81
--- NOTE | 2016-10-19 15:10 | NUR ---
NURSING NOTE: PATIENT LEFT FLOOR VIA W/C WITH DISTRIBUTION AND FAMILY FOR DISCHARGE HOME. SPOUSE WENT TO PHARMACY AND PICKED UP NEW PRESCRIPTIONS PRIOR TO DISCHARGE. IV DISCONTINUED. PATIENT A/OX3, STEADY GAIT, NO ACUTE RESP. DISTRESS AT THIS TIME. ALL DISCHARGE INSTRUCTIONS EXPLAINED TO PATIENT AND SPOUSE. NO QUESTIONS FROM PATIENT AT THIS TIME. PORTABLE OXYGEN BROUGHT FROM HOME FOR PATIENT VIA DAUGHTER FOR DISCHARGE. PATIENT LEFT ON 5L VIA NC PER ORDER AND BASELINE.
== END 2016-10-19 15:10 | disposition home health service (06) | DRG 871 ==
LOC: ERH 10:20 → 2NB 11:42 → ERHI 11:42 → ENRESERV 12:39 → ENTRNSPT 13:47 → EDTRNSPTSTS 15:17 → 2NB 15:25 → CMPTRNSPT 15:31 → 2NB 21:50 → ENPENDDIS 10-19 12:48 → 2NB 10-19 15:10
PROVIDERS: Emergency Medicine; Student in an Organized Health Care Education/Training Program; ADMIT Internal Medicine
DX: A41.9 Sepsis, unspecified organism (principal); J96.21 Acute and chronic respiratory failure with hypoxia; G93.41 Metabolic encephalopathy; J18.9 Pneumonia, unspecified organism; E66.01 Morbid (severe) obesity due to excess calories; I27.2 Other secondary pulmonary hypertension; J96.22 Acute and chronic respiratory failure with hypercapnia; J44.0 Chronic obstructive pulmonary disease with (acute) lower respiratory infection; J44.1 Chronic obstructive pulmonary disease with (acute) exacerbation; Z91.19 Patient's noncompliance with other medical treatment and regimen; Z68.38 Body mass index [BMI] 38.0-38.9, adult; R65.20 Severe sepsis without septic shock; T40.605A Adverse effect of unspecified narcotics, initial encounter; Z99.81 Dependence on supplemental oxygen; G47.33 Obstructive sleep apnea (adult) (pediatric); Z79.01 Long term (current) use of anticoagulants; G62.9 Polyneuropathy, unspecified; I87.8 Other specified disorders of veins; Z87.891 Personal history of nicotine dependence; I27.81 Cor pulmonale (chronic); Z86.711 Personal history of pulmonary embolism; Z79.899 Other long term (current) drug therapy
CPT/HCPCS: 2NBP; 36415; 80307; 81001; 82436; 87040; 87070; 87449; 87450; 93005; 93010; 93970; 96365; 96375; 99291; C8929; J0456; J0696; J0713; J2310; J2920; J2930; J3370; J3490; J7040; J7512; Q9957